=== PATIENT | female | born 1975 | race Caucasian/White ===

== ENCOUNTER 2020-06-22 16:30 | Emergency (ER) | payer OTHER, SELFPAY ==
--- NOTE | ~2020-06-22 | XR_ITS ---
EXAMINATION: LUMBOSACRAL SPINE AND SACRUM/COCCYX CLINICAL INFORMATION: Low back pain COMPARISON: None TECHNIQUE: 2 views lumbosacral spine 3 views sacrum and coccyx FINDINGS: Some minimal spondylitic endplate changes are present in the lumbosacral spine. There is mild disc space narrowing at L3-L4 L4-L5 and L5-S1. No bony destructive lesions or fractures are seen. The sacrum and coccyx appear unremarkable. No evidence of a fracture. XR/XR lumbar spine 2-3V IMPRESSION: Mild degenerative changes in the lumbosacral spine. No acute injury..
--- NOTE | ~2020-06-22 | XR_ITS ---
EXAMINATION: LUMBOSACRAL SPINE AND SACRUM/COCCYX CLINICAL INFORMATION: Low back pain COMPARISON: None TECHNIQUE: 2 views lumbosacral spine 3 views sacrum and coccyx FINDINGS: Some minimal spondylitic endplate changes are present in the lumbosacral spine. There is mild disc space narrowing at L3-L4 L4-L5 and L5-S1. No bony destructive lesions or fractures are seen. The sacrum and coccyx appear unremarkable. No evidence of a fracture. XR/XR sacrum coccyx min 2V IMPRESSION: Mild degenerative changes in the lumbosacral spine. No acute injury..
[2020-06-22 17:34] VITALS: BP 128/85; PULSE 80; RESP 16; O2SAT 96
[2020-06-22 19:12] VITALS: BP 118/71; PULSE 80; RESP 16; TEMP 36.8; O2SAT 100; BMI 42.0
--- NOTE | 2020-06-22 19:15 | ED_ITS ---
HPI - Back Pain/Injury General Chief Complaint: Back Pain/Injury Stated Complaint: lower back pain Source: patient Mode of arrival: wheelchair Limitations: no limitations History of Present Illness HPI Narrative: 44-year-old female with past medical history of laminectomy presents with lower back pain, started off in the middle of her back and radiates to her pelvis and right hip. She has had a history of lower back pain with similar presentation, however has not had this kind of pain in several years since her laminectomy. She does not describe any traumatic injury, denies cauda equina, fevers, chills, chest pain or pressure, palpitations, abdominal pain, abdominal distention, dysuria, hematuria, and edema. MD elicited complaint: back pain Pertinent past history: prior back pain and back surgery Onset (ago): day(s) Timing: constant Severity: severe Pain scale (0-10): 10 Similar Symptoms Previously: Yes Quality: sharp, aching, tingling and spasming Location: lumbar spine, sacrum and right lower back Radiation: groin and right upper leg Exacerbating factors: movement, sitting upright and walking Relieving factors: none Associated symptoms: difficulty walking Treatments prior to arrival: NSAIDS and other medications Work related injury: No Related Data Previous Rx's Medication Instructions Recorded cyclobenzaprine 10 mg PO TID PRN #14 tab 06/22/20 diazepam [Valium] 2 mg PO BEDTIME PRN #7 tab 06/22/20 Allergies Allergy/AdvReac Type Severity Reaction Status Date / Time No Known Allergies Allergy Verified 06/22/20 19:16 Review of Systems Review of Systems: Constitutional: No Weight loss, No Fever, No Chills, ENT/Mouth: No Hearing loss, No Ear Pain, No Nasal Congestion, No Sinus Pain, No Hoarseness, No sore throat, No Rhinorrhea, No Swallowing Difficulty Cardiovascular: No Chest Pain, No SOB Respiratory: No Cough, No Dyspnea Gastrointestinal: No Nausea, No Vomiting, No Diarrhea, No abdominal Pain, No Hematochezia, No Melena Genitourinary: No Dysuria, No Urinary Frequency, No Hematuria, No Urinary Incontinence, Musculoskeletal: positive lower back pain with radiation to the right pelvis and right upper leg Skin: No Skin Lesions, No rash Neuro: No Weakness, No Numbness, No Paresthesias, no loss of bowel or bladder incontinence, no saddle anesthesia Yes all other systems are reviewed and are negative [facility] Past Medical History Attestation statement: The following information was validated with the patient. Source: old records reviewed Surgical History Previous back surgery Social History Social History Advance Directives: No Advance Directives Information Provided: Yes Physical Exam Vital Signs: Vital Signs: Last Vital Signs Temp 98.3 F 06/22/20 19:12 Pulse 80 06/22/20 19:12 Resp 16 06/22/20 19:12 BP 118/71 06/22/20 19:12 Pulse Ox 100 06/22/20 19:12 Body Mass Index 42.0 Appearance: Alert. Oriented X3. No acute distress. Eyes: Pupils equal, round and reactive to light. ENT: Pharynx normal. Neck: Normal inspection. Neck supple. CVS: Normal heart rate and rhythm. Pulses normal. Respiratory: No respiratory distress. Lung sounds clear to auscultation all lobes Abdomen: Soft and nontender. Skin: Skin warm and dry. Normal skin color. Normal skin turgor. Extremities: Moves all extremities against resistance, positive pedal pulses and brisk capillary refill equal bilaterally Neuro: No motor deficit. No sensory deficit. Cranial nerves 2-12 intact no focal neural deficits Course Course Course Narrative: 44-year-old female with past medical history of laminectomy presents with lower back pain. Has had episodes of lower back pain similar to this but not since her surgery. Did not describe any kind of injury. Will give her cyclobenzaprine, lidocaine patches and Valium. Has used ibuprofen, Tylenol, [id number] topicals, and marijuana help relieve her pain with poor effect. Plan of care is for x-ray. X-ray shows degenerative disc disease. Patient was referred to pain management, also discussed that she may need physical therapy for long-term care. Patient upset with these findings, I offered her muscle relaxers and benzo diazepam to help her sleep the muscle spasms. Patient will follow-up with her primary as well as pain management. Patient verbalized understanding of and has agreed to plan of care to discharge home. MDM - Back Pain/Injury Differential Diagnosis Differential diagnosis: Likely lumbar radiculopathy, sciatica and strain of lumbar region Medical Records Attestation: I reviewed the patient's medical records. Lab Data Attestation: I reviewed the patient's lab results. Imaging Data Lumbar and sacral x-ray: Attestation: I personally reviewed and interpreted this imaging study as follows: Radiologist's impression: EXAMINATION: LUMBOSACRAL SPINE AND SACRUM/COCCYX CLINICAL INFORMATION: Low back pain COMPARISON: None TECHNIQUE: 2 views lumbosacral spine 3 views sacrum and coccyx FINDINGS: Some minimal spondylitic endplate changes are present in the lumbosacral spine. There is mild disc space narrowing at L3-L4 L4-L5 and L5-S1. No bony destructive lesions or fractures are seen. The sacrum and coccyx appear unremarkable. No evidence of a fracture. XR/XR sacrum coccyx min 2V IMPRESSION: Mild degenerative changes in the lumbosacral spine. No acute injury.. Discharge Plan Discharge Clinical Impression: Lumbar radiculopathy, Sciatica, Degenerative disc disease Patient Disposition: Home, Self-Care Instructions: Sciatica (ED), Acute Low Back Pain (ED), Lumbar Radiculopathy (ED), Degenerative Disc Disease (ED) Additional Instructions: Your evaluated for lower back pain. Your x-rays are negative for acute findings on emergent intervention but is positive for degenerative disc disease.. We prescribed cyclobenzaprine and Valium. Please use caution while taking these medications, these medications will delay reaction time, increase risk for falls, and cause drowsiness. do not drive or operate machinery while taking this medication. Please call Dr. White for pain management evaluation. Thank you for choosing this emergency department for evaluation. Please follow-up with primary care physician as needed. Return to the emergency department for any new, concerning, or worsening symptoms. Prescriptions: New diazepam [Valium] 2 mg tablet 2 mg PO BEDTIME PRN (Reason: muscle spasm) Qty: 7 RF: 0 cyclobenzaprine 10 mg tablet 10 mg PO TID PRN (Reason: muscle spasm) Qty: 14 RF: 0 Referrals: Kvng White MD [Physician] - 2 days (Lumbar back pain with sciatic, status post laminectomy) Interventions: ED Discharge Assessment Last Done: 06/22/20 20:28 Discharge Date/Time: 06/22/20 20:30
[2020-06-22] MEDS: Cyclobenzaprine HCl 10 MG TABLET PO (20:19)
[2020-06-22] MEDS: diazePAM 2 MG TABLET PO (20:19)
[2020-06-22] MEDS: Lidocaine 4 % Patch ADH..PATCH 2 PATCH TRANSDERMA (20:20)
== END 2020-06-22 20:30 | disposition home or self-care (01) ==
PROVIDERS: Emergency Provider Emergency Medicine Emergency Medical Services
DX: M54.16 Radiculopathy, lumbar region (principal); M54.42 Lumbago with sciatica, left side; M54.41 Lumbago with sciatica, right side; Z79.899 Other long term (current) drug therapy
CPT/HCPCS: 72100; 72220; 99283

== ENCOUNTER 2021-03-21 23:51 | Emergency (ER) | payer OTHER, SELFPAY ==
--- NOTE | ~2021-03-21 | XR_ITS ---
EXAMINATION: XR KNEE, RIGHT CLINICAL INFORMATION: Question fracture COMPARISON: None TECHNIQUE: Four views of the right knee. FINDINGS: Osseous alignment is anatomic. There is mild narrowing of the medial joint space. Osteophytes are present at the medial and lateral compartments. No acute fracture is seen. Small effusion is suspected. XR/XR knee RT 4V IMPRESSION: No fracture identified. Small effusion. Degenerative changes as noted above.
[2021-03-21 23:56] VITALS: BP 139/75; PULSE 78; RESP 20; TEMP 36.3; O2SAT 100; BMI 33.2
--- NOTE | 2021-03-22 06:25 | ED_ITS ---
HPI - Extremity Injury (Lower) General Chief Complaint: Extremity Injury, Lower Stated Complaint: right leg injury Time Seen by Provider: 03/22/21 06:25 Source: patient Mode of arrival: ambulatory History of Present Illness HPI Narrative: This is a 45-year-old female who presents with complaints of right knee pain after she was doing ?kicks? 3 days ago and states that she felt a pop and then had subsequent pain. She has been able to continue ambulating with the knee immobilizer in place but is concerned because she continues to have pain. She otherwise denies any fever, chills. Related Data Previous Rx's Medication Instructions Recorded cyclobenzaprine 10 mg tablet 10 mg PO TID PRN #14 tab 06/22/20 diazepam 2 mg tablet (Valium) 2 mg PO BEDTIME PRN #7 tab 06/22/20 Allergies Allergy/AdvReac Type Severity Reaction Status Date / Time No Known Allergies Allergy Verified 06/22/20 19:16 Review of Systems Review of Systems: Pertinent positives and negatives as stated in HPI 10 point review of systems otherwise negative. [facility] Past Medical History Source: nursing notes reviewed Surgical History Previous back surgery Social History Social History Advance Directives: No Advance Directives Information Provided: Yes Physical Exam Vital Signs: Vital Signs: Last Vital Signs Temp 97.3 F 03/21/21 23:56 Pulse 78 03/21/21 23:56 Resp 20 03/21/21 23:56 BP 139/75 03/21/21 23:56 Pulse Ox 100 03/21/21 23:56 BMI result Body Mass Index 33.2 VITAL SIGNS: Reviewed. GENERAL: Well developed, well nourished, in no acute distress. HEAD: Normocephalic/atraumatic EYES: PERRLA, EOMI LUNGS: Normal breath sounds. SpO2<100> CARDIOVASCULAR: Regular rate and rhythm without noted murmurs ABDOMEN: Soft, non-tender, non-distended with bowel sounds RIGHT LOWER EXTREMITY: THERE IS NO ERYTHEMA, INDURATION, SIGNIFICANT EFFUSION AT THE KNEE AND SENSATION IS INTACT WITH PALPABLE DP/PT AND PATIENT IS ABLE TO RANGE OF MOTION WITHOUT DIFFICULTY. THERE IS NO CALF SWELLING OR TENDERNESS NOTED NEUROLOGIC: Alert and oriented x 4. Course Course Course Narrative: 45-year-old female with history and clinical presentation consistent with mild injury associated with exercise regimen and has been able to bear weight with knee immobilizer in place. On review of imaging patient is noted to be without acute fracture or dislocation and patient received combination analgesics and on re-evaluation endorses improvement in her pain levels. Patient was encouraged to follow-up with primary care provider as well as being provided with a referral see orthopedics. Discharge Plan Discharge Clinical Impression: Knee pain Patient Disposition: Home, Self-Care Instructions: Knee Pain (ED), Knee Immobilizer (ED) Additional Instructions: 1. Recommend continuing to wear knee immobilizer wall walking and working. 2. Tylenol 1000 mg, orally, every 6 hours as needed for pain control. Do not exceed 4000 mg within 24 hours. 3. Ibuprofen 400 mg, orally with milk or food, every 6 hours as needed for pain control. You may take this with Tylenol for increased symptom relief. 4. Recommend applying ice for 10-15 minutes, 3 to 4 times a day and elevating the extremity when possible. 5. Follow-up with your primary care provider for further discussion regarding possible physical therapy. Return to the ER for acute worsening of symptoms. Prescriptions: No Action diazepam [Valium] 2 mg tablet 2 mg PO BEDTIME PRN (Reason: muscle spasm) Qty: 7 RF: 0 cyclobenzaprine 10 mg tablet 10 mg PO TID PRN (Reason: muscle spasm) Qty: 14 RF: 0 Stand Alone Forms: Work/School Release
[2021-03-22] MEDS: Ketorolac Tromethamine 30 MG/ML VIAL 15 MG IM (06:38)
[2021-03-22] MEDS: Acetaminophen 325 MG TABLET 975 MG PO (06:38)
== END 2021-03-22 06:53 | disposition home or self-care (01) ==
PROVIDERS: Emergency Provider Student in an Organized Health Care Education/Training Program
DX: M25.561 Pain in right knee (principal)
CPT/HCPCS: 73564; 96372; 99283; 99284; J1885

== ENCOUNTER 2021-05-20 17:32 | Emergency (ER) | payer OTHER, SELFPAY ==
--- NOTE | ~2021-05-20 | XR_ITS ---
EXAMINATION: XR SHOULDER, LEFT CLINICAL INFORMATION: Pain in left shoulder COMPARISON: None TECHNIQUE: Three views of the left shoulder. FINDINGS: The bones and soft tissues are normal. No fracture. Glenohumeral and acromioclavicular alignment is anatomic with normal joint space. No abnormal soft tissue calcifications. XR/XR shoulder LT min 2V IMPRESSION: Normal left shoulder.
[2021-05-20 17:37] VITALS: BP 176/101; PULSE 107; RESP 18; TEMP 36.9; O2SAT 98; BMI 28.3
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
--- NOTE | 2021-05-20 19:23 | PC.NURSE ---
[employer] IN TALKING WITH PATIENT.
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
[2021-05-20 20:52] VITALS: BP 136/73; PULSE 64; RESP 16; TEMP 36.4; O2SAT 97
== END 2021-05-20 21:06 | disposition home or self-care (01) ==
PROVIDERS: Emergency Provider Internal Medicine
DX: S46.912A Strain of unspecified muscle, fascia and tendon at shoulder and upper arm level, left arm, initial encounter (principal); M79.602 Pain in left arm; Y04.8XXA Assault by other bodily force, initial encounter; Y93.9 Activity, unspecified; Y92.9 Unspecified place or not applicable; Y99.9 Unspecified external cause status; Z79.899 Other long term (current) drug therapy
CPT/HCPCS: 73030; 99283; 99291

== ENCOUNTER 2021-08-18 09:50 | Emergency (ER) | payer OTHER, SELFPAY ==
--- NOTE | ~2021-08-18 | CT_ITS ---
EXAMINATION: CT ABDOMEN AND PELVIS WITHOUT CONTRAST CLINICAL INFORMATION: Abnormal vaginal bleeding, hematuria and right flank pain COMPARISON: None TECHNIQUE: Multidetector volumetric imaging was performed from the superior aspect of the liver through the pubic symphysis. Sagittal and coronal reformatted images were obtained on the technologist's workstation. This CT examination was performed using dose optimization techniques as appropriate, variously including the following: *Automated exposure control *Adjustment of mA and/or kV according to patient size (this includes techniques or standardized protocols for targeted exams where dose is matched to indication/reason for exam; i.e. extremities or head) *Use of iterative reconstruction technique DLP: 416 mGy-cm FINDINGS: LUNG BASES: The visualized lung bases are unremarkable. LIVER, GALLBLADDER, AND BILIARY TREE: The liver is enlarged measuring approximately 20 cm in cephalocaudad dimension but is normal in shape and attenuation. No focal hepatic lesion or biliary ductal dilatation is present. The gallbladder contains 2 large calcified stones measuring about 1.5 cm each. There is some mild thickening in the gallbladder at its base. No gross inflammatory changes or pericholecystic fluid collections are seen. PANCREAS: Unremarkable. SPLEEN: Unremarkable. ADRENAL GLANDS: Unremarkable. KIDNEYS AND URETERS: The kidneys are normal in size, shape, and attenuation. No hydronephrosis, hydroureter, or calculi seen. No perinephric stranding. BLADDER: Unremarkable. GASTROINTESTINAL TRACT: The small and large bowel are unremarkable. The appendix is unremarkable. ABDOMINAL WALL: No significant hernia is appreciated. LYMPH NODES: Normal. VASCULAR: Unremarkable. PELVIC VISCERA: Uterus appears enlarged. An abnormal adnexal mass or free fluid is not seen. OSSEOUS STRUCTURES: Mild degenerative changes present in the spine most marked at L5-S1. CT/CT abdomen pelvis wo con IMPRESSION: 1. Hepatomegaly. 2. Cholelithiasis. 3. Mildly enlarged uterus. 4. A cause for the hematuria and flank pain has not been found. Fleischner guidelines were followed.
--- NOTE | ~2021-08-18 | US_ITS ---
EXAMINATION: US PELVIS CLINICAL INFORMATION: Abnormal vaginal bleeding COMPARISON: None TECHNIQUE: Ultrasound of the pelvis is performed using both transabdominal and transvaginal transducers along with Doppler. Transvaginal imaging is performed due to inadequate visualization transabdominally. FINDINGS: Uterus: The uterus is anteverted and measures 12.8 x 5.6 x 7.5 cm. The uterus is smooth in contour and has heterogeneous myometrial echogenicity. The double wall endometrial thickness is 9 mm. A tiny focal fluid collection is seen in the endometrial canal measuring 3 mm. At least 2 small uterine fibroids are seen measuring under a centimeter in size. Adnexa: Both ovaries are visualized. There is normal color flow to the adnexa. There is no ovarian torsion. There is no pelvic ascites or fluid collection. Right ovary measures 2.3 x 1.6 x 1.7 cm for a volume of 33 mL Left ovary measures 2.7 x 2.5 x 1.4 cm for a volume of 5 mL and contains a 1.5 x 1.1 x 1.2 cm probable corpus luteal cyst. No free fluid is present in the cul-de-sac US/US pelvic and transvaginal IMPRESSION: Bulky heterogeneous uterus with 2 small fibroids seen. Tiny fluid collection in the endometrial canal. An abnormal adnexal mass is not seen.
[2021-08-18 09:56] VITALS: BP 123/68; PULSE 89; RESP 18; TEMP 36.3; O2SAT 100; BMI 25.9
[2021-08-18 10:17] LABS: Appearance Urine HAZY; Glucose Urine UA NEG (NEG); Leukocyte Esterase Urine NEG (NEG); Nitrite Urine NEG (NEG); PH 6.5 (5.0-8.0); Specific Gravity - Urine <= 1.005 (1.005-1.025); UACC Culture Trigger NO; Urine Blood 3+ (NEG); Urine Ketones NEG (NEG); Urine Protein NEG (NEG-TRACE)
[2021-08-18 10:18] LABS: Color Urine PINK
[2021-08-18 10:21] LABS: UPreg QC Valid YES; Urine Pregnancy NEGATIVE (NEGATIVE)
[2021-08-18 10:23] LABS: RBC Urine TNTC /HPF (0); Squamous Epithelial Cell Urine TRACE /LPF; WBC Urine 0 /HPF (0-4)
--- NOTE | 2021-08-18 10:37 | ECG_ITS ---
Test Reason : vaginal bleed Blood Pressure : / mmHG Vent. Rate : 056 BPM Atrial Rate : 056 BPM P-R Int : 128 ms QRS Dur : 096 ms QT Int : 392 ms P-R-T Axes : 052 034 033 degrees QTc Int : 378 ms Sinus bradycardia Otherwise normal ECG No previous ECGs available Referred By: Felicitas Jones Electronically Signed By:Arnaldo Shoemaker
[2021-08-18 11:00] LABS: MANUAL DIFF FLAG NO
[2021-08-18 11:01] LABS: Basophils Percent Auto 0.3 % (0-2); Eosinophils Absolute Auto 0.1 X10*3/uL (0.0-0.4); Eosinophils Percent Auto 0.9 % (0-4); Hematocrit 42.6 % (37.0-47.0); Hemoglobin 13.9 g/dl (12.0-16.0); Imm Gran Abs Auto 0.01 X10*3/uL (0.00-0.03); Imm Gran Pct Auto 0.1 % (0.0-0.4); Lymphocytes Absolute Auto 1.5 X10*3/uL (1.2-4.9); Lymphocytes Percent Auto 20.2 % (20-40); Mean Corpuscular HGB Conc 32.6 g/dl (31.0-35.0); Mean Platelet Volume 9.3 fL (9.4-12.3); Monocytes Absolute Auto 0.5 X10*3/uL (0.1-1.2); Monocytes Percent Auto 6.6 % (2-11); Neutrophils Absolute Auto 5.4 x10*3/uL (2.0-8.3); Neutrophils Percent Auto 71.9 % (45-73); Platelet Count 238 X10*3/uL (160-400); Red Blood Count 4.63 X10*6/uL (4.20-5.50); White Blood Count 7.5 X10*3/uL (4.8-10.8)
[2021-08-18 11:13] LABS: Prothrombin Time 11.3 SEC (9.9-13.0)
[2021-08-18 11:15] LABS: Alanine Aminotransferase 22 U/L (0-31); Albumin Level 4.2 g/dL (3.5-5.0); Alkaline Phosphatase 40 U/L (39-117); Anion Gap 12 (12-20); Aspartate Amino Transferase 17 U/L (5-31); Bilirubin Total 0.4 mg/dL (0.0-1.0); Blood Urea Nitrogen 16 mg/dL (9-16); Carbon Dioxide 26 mmol/L (22-29); Chloride 108 mmol/L (96-108); Creatinine Clr Calc Pharmacy 77.9; Estimated Glomerular Filt Rate > 60; Glucose Random 99 mg/dL (60-115); Magnesium 2.2 mg/dL (1.6-2.6); Potassium 4.9 mmol/L (3.3-5.1); Sodium 141 mmol/L (135-145); Total Protein 6.6 g/dL (6.5-8.0)
[2021-08-18 11:17] VITALS: PULSE 65; RESP 16; O2SAT 100
[2021-08-18] MEDS: 0.9 % Sodium Chloride 1,000 ML 999 ML IVCONT (11:22)
[2021-08-18 11:28] VITALS: BP 123/63; PULSE 56; RESP 16; O2SAT 100
[2021-08-18 11:55] VITALS: BP 135/86; BP 150/89; PULSE 61; PULSE 64
[2021-08-18 11:56] VITALS: BP 158/90; PULSE 65
--- NOTE | 2021-08-18 12:08 | ED_ITS ---
HPI - Female Genitourinary General Chief complaint: Vaginal Bleeding Stated complaint: heavy vaginal bleeding 2 weeks Time Seen by Provider: 08/18/21 10:36 Source: patient Mode of arrival: ambulatory Limitations: no limitations History of Present Illness HPI Narrative: 45-year-old female with a past medical history of laminectomy presenting to the ED with complaints of irregular vaginal bleeding for approximately 4 days now with clots with associated lightheadedness. She reports that she had her regular menstrual period approximately 1 and half weeks ago which lasted 7 days and was heavy then became light and it went away for 3 days then she started bleeding heavily again and she is unsure why. She reports that she does have some suprapubic/right lower quadrant/right flank/right mid back pain and lighth eadedness/dizziness. She reports that she has never had any irregular bleeding in the past. She does not have any thoughts of STDs although does admit that she has been having some problems with her . She reports that her family does have a history of cervical cancer. She denies any fevers, chills, headaches, neck pain/stiffness, trouble swallowing or breathing, chest pain or shortness of breath, dyspnea on exertion, orthopnea, palpitations, paresthesias, nausea/vomiting/diarrhea, black or bloody stools, black or bloody emesis, focal weakness or general weakness, dysuria, abnormal vaginal discharge, rashes, recent trauma to the vaginal area or any other symptoms complaints or concerns at this time. MD elicited complaint: vaginal bleeding Onset (ago): day(s) (4) Severity: severe Female Urogenital Radiation: Suprapubic, LRQ and R Flank Quality of pain: cramping and aching Consistency: constant Vaginal discharge: none Vaginal bleeding: moderate, heavy, bright red, clots and # pads per hour (1) Urinary symptoms: Hematuria Exacerbating factors: none Relieving factors: none Associated symptoms: abdominal pain and other (Lightheadedness) Treatment prior to arrival: none Sexual activity: Yes Patient : No Related Data Previous Rx's Medication Instructions Recorded cyclobenzaprine 10 mg tablet 10 mg PO TID PRN #14 tab 06/22/20 diazepam 2 mg tablet (Valium) 2 mg PO BEDTIME PRN #7 tab 06/22/20 cyclobenzaprine 10 mg tablet 10 mg PO BEDTIME PRN #7 tab 05/20/21 lidocaine 5 % topical patch 1 patch TOPICAL DAILY PRN #15 ea 05/20/21 medroxyprogesterone 10 mg tablet 10 mg PO DAILY 30 Days #30 tab 08/18/21 (Provera) Allergies Allergy/AdvReac Type Severity Reaction Status Date / Time No Known Allergies Allergy Verified 08/18/21 09:55 Review of Systems 2 Review of Systems: Constitutional : No Fever, No Chills ENT/Mouth : No sore throat, No Rhinorrhea Eyes: No Eye Pain, No Redness Cardiovascular : No Chest Pain, No SOB Respiratory : No Cough, No Sputum, No Wheezing Gastrointestinal : + abdominal pain, No Nausea, No Vomiting, No Diarrhea Genitourinary : + irregular bleeding, + hematuria, No Dysuria, No Urinary Frequency, No pelvic pain, No vaginal discharge Musculoskeletal : No Myalgias Skin : No rash Neuro : No Weakness, No Headache Psych : No Anxiety/Panic, No Depression Heme/Lymph: No bruising, No Lymphadenopathy Endocrine : No Polyuria, No Polydipsia Yes all other systems are reviewed and are negative [facility] Past Medical History Attestation statement: The following information was validated with the patient. Surgical History Previous back surgery Social History Social History Patient Tobacco Use Status: Current everyday Tobacco user Use of substances other than those prescribed or required for medical reasons: Yes Substance Use Type: Marijuana Advance Directives: No Advance Directives Information Provided: No Patient : No Physical Exam Vital Signs: Vital Signs: Last Vital Signs Temp 97.3 F 08/18/21 09:56 Pulse 65 08/18/21 11:56 Resp 16 08/18/21 11:28 BP 158/90 H 08/18/21 11:56 Pulse Ox 100 08/18/21 11:28 BMI result Body Mass Index 25.9 vital signs have been reviewed as normal and appeared to be correct. Blood pressure normal. Heart rate normal. Respiration rate normal. Temperature normal. Oxygen saturation normal. Appearance: Alert. Oriented X3. No acute distress. Head: Normal external exam. Normocephalic. Atraumatic. Eyes: PERRLA. EOMI. Conjunctiva and sclera normal. Eyelids normal. ENT: EAC normal. TM's Normal. Pharynx normal. Uvula midline. Moist mucous membranes. No trismus noted. No drooling noted. No muffled voice noted. Neck: Normal inspection. Neck supple. FROM. No adenopathy. Thyroid Normal. No meningeal signs. No neck mass noted. CVS: Normal heart rate and rhythm. Heart sound normal. No murmurs noted. Pulses normal throughout. Respiratory: No respiratory distress. Painless inspiration. Breath sounds normal. No wheezes/rales/rhonchi noted. Chest nontender. No accessory muscle usage noted or decreased air movement noted. Abdomen: Soft and nontender. Bowel sounds normal in all 4 quadrants. No distention noted. No organomegaly noted. No visible injury noted. : Supervised by ALCIDES Rosas. Normal external appearance of urethra. No lesions/lacerations or discharge or tenderness noted. Speculum exam normal appearance/palpation of vagina normal. No abnormal vaginal discharge noted. Otherwise no vaginal erythema. No foreign bodies noted. No vaginal laceration/lesions. Although patient did have 10-15 mL of bright red blood in the vaginal canal although when I provided suction there was no additional bleeding or active bleeding from the cervical os. No tissue present in vagina. No vaginal mass noted. No vaginal swelling noted. No vaginal tenderness noted. Normal appearance of cervix. Normal palpation of cervix. Cervical os is closed. No abnormal cervical discharge noted. No cervical lesion/mass. No Bartholin cyst noted. No cervical motion tenderness noted. Negative chandelier sign. Normal bimanual exam. Uterine size normal. Bladder normal to palpation. Uterine consistency normal. Normal cervical palpation. Uterine mobility normal. Uterine shape normal. Normal adnexa. Normal rectovaginal exam. Back: No CVA tenderness. Full range of motion noted. Skin: Skin warm and dry. Normal skin color. Normal skin turgor. No rashes/lesions/lacerations noted. Extremities: No lower extremity edema. Extremities exhibit normal range of mo tion. Extremities nontender. Neuro: Oriented X 3. No motor deficit. No sensory deficit. Reflexes normal. Course Course Course Narrative: 10:40am - 45-year-old female with a past medical history of laminectomy presenting to the ED with complaints of irregular vaginal bleeding for approximately 4 days now with clots with associated lightheadedness. She reports that she had her regular menstrual period approximately 1 and half weeks ago which lasted 7 days and was heavy then became light and it went away for 3 days then she started bleeding heavily again and she is unsure why. She reports that she does have some suprapubic/right lower quadrant/right flank/right mid back pain and lighthe adedness/dizziness. She reports that she has never had any irregular bleeding in the past. She does not have any thoughts of STDs although does admit that she has been having some problems with her . She reports that her family does have a history of cervical cancer. Plan: Labs, blood type and screen, orthostatic vitals, CT scan abdomen pelvis without IV contrast, gonorrhea chlamydia swab, ultrasound transvaginal Reevaluation(s) Reevaluation #1: - labs reviewed and all within normal limits at this time including the patient's H&H. UA revealed high amounts of blood otherwise no evidence of UTI and patient negative for . Gonorrhea chlamydia pending at this time - CT scan abdomen pelvis without IV contrast pending at this time - transvaginal ultrasound pending at this time. Time: 12:22 Reevaluation #2: - CT scan of abdomen pelvis without IV contrast revealed hepatomegaly; cholelithiasis; mildly enlarged uterus otherwise no other acute processes were noted to explain the patient's hematuria and flank pain. - pelvic/transvaginal ultrasound revealed bulky heterogeneous uterus with 2 small fibroids seen and tiny fluid collection in the endometrial canal and abnormal adnexal mass is not seen. - therefore I discussed this case with Dr. Bustamante and due to the patient's H&H being within normal limits and all her labs/vitals and imaging within normal limits patient will be discharged with Provera 10 mg PO qd #30 till she is seen in the office with Dr. Bustamante and he reported that she will need emb to rule out endometrial pathology. Patient understands and is agreeable with this plan. Time: 13:38 MDM - Female Genitourinary Medical Records Attestation: I reviewed the patient's medical records. Lab Data Attestation: I reviewed the patient's lab results. Result diagrams: 08/18/21 10:52 08/18/21 10:52 Labs: Lab Results 08/18/21 08/18/21 08/18/21 Range/Units 10:09 10:09 10:52 WBC 7.5 (4.8-10.8) X10*3/uL RBC 4.63 (4.20-5.50) X10*6/uL Hgb 13.9 (12.0-16.0) g/dl Hct 42.6 (37.0-47.0) % MCV 92.0 (80.0-98.0) fL MCH 30.0 (27.0-33.0) pg MCHC 32.6 (31.0-35.0) g/dl RDW 14.0 (11.0-16.0) % Plt Count 238 (160-400) X10*3/uL MPV 9.3 L (9.4-12.3) fL Immature Gran % (Auto) 0.1 (0.0-0.4) % Neut % (Auto) 71.9 (45-73) % Lymph % (Auto) 20.2 (20-40) % [place] % (Auto) 6.6 (2-11) % Eos % (Auto) 0.9 (0-4) % Baso % (Auto) 0.3 (0-2) % Lymph # (Auto) 1.5 (1.2-4.9) X10*3/uL [place] # (Auto) 0.5 (0.1-1.2) X10*3/uL Eos # (Auto) 0.1 (0.0-0.4) X10*3/uL Baso # (Auto) 0.0 (0.0-0.2) X10*3/uL Abs Immat Gran (auto) 0.01 (0.00-0.03) X10*3/uL Absolute Neuts (auto) 5.4 (2.0-8.3) x10*3/uL Absolute Nucleated RBC 0.000 (0.0-0.012) X10*3/uL Nucleated RBC % (auto) 0.0 (0.0-0.2) /100WBC PT (9.9-13.0) SEC INR (0.9-1.1) Sodium (135-145) mmol/L Potassium (3.3-5.1) mmol/L Chloride (96-108) mmol/L Carbon Dioxide (22-29) mmol/L Anion Gap (12-20) BUN (9-16) mg/dL Creatinine (0.5-1.4) mg/dL Estim Creat Clear Calc Estimated GFR Random Glucose (60-115) mg/dL Calcium (8.4-10.2) mg/dL Magnesium (1.6-2.6) mg/dL Total Bilirubin (0.0-1.0) mg/dL AST (5-31) U/L ALT (0-31) U/L Alkaline Phosphatase (39-117) U/L Total Protein (6.5-8.0) g/dL Albumin (3.5-5.0) g/dL Urine Color PINK Urine Appearance HAZY Urine pH 6.5 (5.0-8.0) Ur Specific [place] <= 1.005 (1.005-1.025) Urine Protein NEG (NEG-TRACE) MG/DL Urine Glucose (UA) NEG (NEG) MG/DL Urine Ketones NEG (NEG) MG/DL Urine Blood 3+ H (NEG) Urine Nitrite NEG (NEG) Ur Leukocyte Esterase NEG (NEG) Urine RBC TNTC H (0) /HPF Urine WBC 0 (0-4) /HPF Ur Squamous Epith Cells TRACE /LPF Urine Bacteria NONE /LPF Urine Test NEGATIVE (NEGATIVE) Blood Type Antibody Screen 08/18/21 08/18/21 08/18/21 Range/Units 10:52 10:52 10:52 WBC (4.8-10.8) X10*3/uL RBC (4.20-5.50) X10*6/uL Hgb (12.0-16.0) g/dl Hct (37.0-47.0) % MCV (80.0-98.0) fL MCH (27.0-33.0) pg MCHC (31.0-35.0) g/dl RDW (11.0-16.0) % Plt Count (160-400) X10*3/uL MPV (9.4-12.3) fL Immature Gran % (Auto) (0.0-0.4) % Neut % (Auto) (45-73) % Lymph % (Auto) (20-40) % [place] % (Auto) (2-11) % Eos % (Auto) (0-4) % Baso % (Auto) (0-2) % Lymph # (Auto) (1.2-4.9) X10*3/uL [place] # (Auto) (0.1-1.2) X10*3/uL Eos # (Auto) (0.0-0.4) X10*3/uL Baso # (Auto) (0.0-0.2) X10*3/uL Abs Immat Gran (auto) (0.00-0.03) X10*3/uL Absolute Neuts (auto) (2.0-8.3) x10*3/uL Absolute Nucleated RBC (0.0-0.012) X10*3/uL Nucleated RBC % (auto) (0.0-0.2) /100WBC PT 11.3 (9.9-13.0) SEC INR 1.0 (0.9-1.1) Sodium 141 (135-145) mmol/L Potassium 4.9 (3.3-5.1) mmol/L Chloride 108 (96-108) mmol/L Carbon Dioxide 26 (22-29) mmol/L Anion Gap 12 (12-20) BUN 16 (9-16) mg/dL Creatinine 0.74 (0.5-1.4) mg/dL Estim Creat Clear Calc 77.9 Estimated GFR > 60 Random Glucose 99 (60-115) mg/dL Calcium 9.0 (8.4-10.2) mg/dL Magnesium 2.2 (1.6-2.6) mg/dL Total Bilirubin 0.4 (0.0-1.0) mg/dL AST 17 (5-31) U/L ALT 22 (0-31) U/L Alkaline Phosphatase 40 (39-117) U/L Total Protein 6.6 (6.5-8.0) g/dL Albumin 4.2 (3.5-5.0) g/dL Urine Color Urine Appearance Urine pH (5.0-8.0) Ur Specific [place] (1.005-1.025) Urine Protein (NEG-TRACE) MG/DL Urine Glucose (UA) (NEG) MG/DL Urine Ketones (NEG) MG/DL Urine Blood (NEG) Urine Nitrite (NEG) Ur Leukocyte Esterase (NEG) Urine RBC (0) /HPF Urine WBC (0-4) /HPF Ur Squamous Epith Cells /LPF Urine Bacteria /LPF Urine Test (NEGATIVE) Blood Type Antibody Screen 08/18/21 Range/Units 11:16 WBC (4.8-10.8) X10*3/uL RBC (4.20-5.50) X10*6/uL Hgb (12.0-16.0) g/dl Hct (37.0-47.0) % MCV (80.0-98.0) fL MCH (27.0-33.0) pg MCHC (31.0-35.0) g/dl RDW (11.0-16.0) % Plt Count (160-400) X10*3/uL MPV (9.4-12.3) fL Immature Gran % (Auto) (0.0-0.4) % Neut % (Auto) (45-73) % Lymph % (Auto) (20-40) % [place] % (Auto) (2-11) % Eos % (Auto) (0-4) % Baso % (Auto) (0-2) % Lymph # (Auto) (1.2-4.9) X10*3/uL [place] # (Auto) (0.1-1.2) X10*3/uL Eos # (Auto) (0.0-0.4) X10*3/uL Baso # (Auto) (0.0-0.2) X10*3/uL Abs Immat Gran (auto) (0.00-0.03) X10*3/uL Absolute Neuts (auto) (2.0-8.3) x10*3/uL Absolute Nucleated RBC (0.0-0.012) X10*3/uL Nucleated RBC % (auto) (0.0-0.2) /100WBC PT (9.9-13.0) SEC INR (0.9-1.1) Sodium (135-145) mmol/L Potassium (3.3-5.1) mmol/L Chloride (96-108) mmol/L Carbon Dioxide (22-29) mmol/L Anion Gap (12-20) BUN (9-16) mg/dL Creatinine (0.5-1.4) mg/dL Estim Creat Clear Calc Estimated GFR Random Glucose (60-115) mg/dL Calcium (8.4-10.2) mg/dL Magnesium (1.6-2.6) mg/dL Total Bilirubin (0.0-1.0) mg/dL AST (5-31) U/L ALT (0-31) U/L Alkaline Phosphatase (39-117) U/L Total Protein (6.5-8.0) g/dL Albumin (3.5-5.0) g/dL Urine Color Urine Appearance Urine pH (5.0-8.0) Ur Specific [place] (1.005-1.025) Urine Protein (NEG-TRACE) MG/DL Urine Glucose (UA) (NEG) MG/DL Urine Ketones (NEG) MG/DL Urine Blood (NEG) Urine Nitrite (NEG) Ur Leukocyte Esterase (NEG) Urine RBC (0) /HPF Urine WBC (0-4) /HPF Ur Squamous Epith Cells /LPF Urine Bacteria /LPF Urine Test (NEGATIVE) Blood Type O Positive Antibody Screen NEGATIVE Imaging Data CT scan abdomen pelvis without IV contrast: Attestation: I personally reviewed and interpreted this imaging study as follows: Radiologist's impression: FINDINGS: LUNG BASES: The visualized lung bases are unremarkable.? LIVER, GALLBLADDER, AND BILIARY TREE: The liver is enlarged measuring approximately 20 cm in cephalocaudad dimension but is normal in shape and attenuation.? No focal hepatic lesion or biliary ductal dilatation is present. The gallbladder contains 2 large calcified stones measuring about 1.5 cm each. There is some mild thickening in the gallbladder at its base. No gross inflammatory changes or pericholecystic fluid collections are seen.? PANCREAS: Unremarkable.? SPLEEN: Unremarkable.? ADRENAL GLANDS: Unremarkable.? KIDNEYS AND URETERS: The kidneys are normal in size, shape, and attenuation. No hydronephrosis, hydroureter, or calculi seen. No perinephric stranding. ? BLADDER: Unremarkable.? GASTROINTESTINAL TRACT: The small and large bowel are unremarkable. The appendix is unremarkable.? ABDOMINAL WALL: No significant hernia is appreciated.? LYMPH NODES: Normal. VASCULAR: Unremarkable. PELVIC VISCERA: Uterus appears enlarged. An abnormal adnexal mass or free fluid is not seen.? OSSEOUS STRUCTURES: Mild degenerative changes present in the spine most marked at L5-S1.? CT/CT abdomen pelvis wo con IMPRESSION: 1.? Hepatomegaly. 2.? Cholelithiasis. 3.? Mildly enlarged uterus. 4.? A cause for the hematuria and flank pain has not been found.? ? Fleischner guidelines were followed. Pelvic/transvaginal ultrasound: Attestation: I personally reviewed and interpreted this imaging study as follows: Radiologist's impression: FINDINGS: Uterus: The uterus is anteverted and measures 12.8 x 5.6 x 7.5 cm.? The uterus is smooth in contour and has heterogeneous myometrial echogenicity. The double wall endometrial thickness is 9 mm. A tiny focal fluid collection is seen in the endometrial canal measuring 3 mm. At least 2 small uterine fibroids are seen measuring under a centimeter in size. Adnexa: Both ovaries are visualized. There is normal color flow to the adnexa. There is no ovarian torsion.? There is no pelvic ascites or fluid collection. Right ovary measures 2.3 x 1.6 x 1.7 cm for a volume of 33 mL Left ovary measures 2.7 x 2.5 x 1.4 cm for a volume of 5 mL and contains a 1.5 x 1.1 x 1.2 cm probable corpus luteal cyst. No free fluid is present in the cul-de-sac US/US pelvic and transvaginal IMPRESSION: Bulky heterogeneous uterus with 2 small fibroids seen. Tiny fluid collection in the endometrial canal. An abnormal adnexal mass is not seen. ECG Data Attestation: I personally reviewed and interpreted this ECG as follows: ECG interpretation date: 08/18/21 ECG interpretation time: 10:38 Interpretation: Patient with ventricular rate of 56 with sinus bradycardia normal [place] interval normal QRS duration normal QT/QTC interval. No acute ischemic change are noted. No prior EKGs in our system to compare to at this time. Discharge Plan Discharge Clinical Impression: Metrorrhagia, Fibroid, uterine Patient Disposition: Home, Self-Care Instructions: Dysfunctional Uterine Bleeding (ED) Prescriptions: New medroxyprogesterone [Provera] 10 mg tablet 10 mg PO DAILY 30 Days Qty: 30 0RF No Action diazepam [Valium] 2 mg tablet 2 mg PO BEDTIME PRN (Reason: muscle spasm) Qty: 7 0RF cyclobenzaprine 10 mg tablet 10 mg PO TID PRN (Reason: muscle spasm) Qty: 14 0RF cyclobenzaprine 10 mg tablet 10 mg PO BEDTIME PRN (Reason: muscle spasm) Qty: 7 0RF lidocaine 5 % adhesive patch,medicated 1 patch topical DAILY PRN (Reason: pain) Qty: 15 0RF Rx Instructions: leave on most painful area for up to 12 hrs Referrals: Kvng Bustamante MD [Physician] - 1 week (Call tomorrow to make a follow-up appointment within the next 1-2 weeks) Stand Alone Forms: Work/School Release
--- NOTE | 2021-08-18 13:37 | P.CONOB_ITS ---
MARKETING SALES REPRESENTATIVE - CN: HPI Data of Consult Consult date: 08/18/21 Primary Care Provider: Unknown Physician Consult Narrative Narrative: I was consulted on Karin Stokes who is a 45 year old female presenting to the emergency room complaining of irregular vaginal bleeding for approximately 4 days associated with passage of blood clots, pelvic cramping and lightheadedness, and dizziness.? cc:: CC: BRAND REPRESENTATIVE - Review of Systems Review of Systems ROS Unobtainable: All systems reviewed & are unremarkable except as noted in HPI and below Cardiovascular: Denies Palpatations, Loss of consciousness or Chest pain Respiratory: Denies Cough, Wheezing or Shortness of breath Musculoskeletal: Denies Low back pain Gastrointestinal: Denies Heartburn, Constipation, Diarrhea, Nausea or Vomiting Genitourinary: Denies Pain with urination, Burning with urination or Urinary abigail quency Neurological: Denies Migranes Psychological: Denies Depression OB [facility] Surgical History Surgical History Previous back surgery Social History Social History Patient Tobacco Use Status: Current everyday Tobacco user Use of substances other than those prescribed or required for medical reasons: Yes Substance Use Type: Marijuana Advance Directives: No Advance Directives Information Provided: No Patient : No Meds Allergies Allergy/AdvReac Type Severity Reaction Status Date / Time No Known Allergies Allergy Verified 08/18/21 09:55 MARKETING SALES REPRESENTATIVE Physical Exam Vitals Vital signs: Temp Pulse Resp BP Pulse Ox 97.3 F 65 16 158/90 H 100 08/18/21 09:56 08/18/21 11:56 08/18/21 11:28 08/18/21 11:56 08/18/21 11:28 BMI result Body Mass Index 25.9 Constitutional General Appearance: Healthy appearing, Well-nourished and Well-developed Psychiatric Mood and Affect: active and alert, normal mood and normal affect Skin Appearance: No rashes and No lesions Lungs Respiratory Effort: No intercostal retractions Auscultation: Clear to auscultation Cardiovascular Auscultation: RRR Abdomen Auscultation/Inspection/Palpation: Normal bowel sounds, Soft, Non-distended and No tenderness Additional Comments: Pelvic exam reported by QUENTIN Lemus, no active vaginal bleeding, no cervical motion tenderness, no adnexal or uterine tenderness MARKETING SALES REPRESENTATIVE - Results Labs CBC & Chem 7: 08/18/21 10:52 08/18/21 10:52 Labs: Short CBC 08/18/21 Range/Units 10:52 WBC 7.5 (4.8-10.8) X10*3/uL Hgb 13.9 (12.0-16.0) g/dl Hct 42.6 (37.0-47.0) % Plt Count 238 (160-400) X10*3/uL BMP 08/18/21 10:52 Sodium 141 Potassium 4.9 Chloride 108 Carbon Dioxide 26 BUN 16 Creatinine 0.74 Calcium 9.0 Liver Function 08/18/21 Range/Units 10:52 Total Bilirubin 0.4 (0.0-1.0) mg/dL AST 17 (5-31) U/L ALT 22 (0-31) U/L Alkaline Phosphatase 40 (39-117) U/L Albumin 4.2 (3.5-5.0) g/dL Urine 08/18/21 08/18/21 Range/Units 10:09 10:09 Urine Color PINK Urine Appearance HAZY Urine pH 6.5 (5.0-8.0) Ur Specific [place] <= 1.005 (1.005-1.025) Urine Protein NEG (NEG-TRACE) MG/DL Urine Glucose (UA) NEG (NEG) MG/DL Urine Test NEGATIVE (NEGATIVE) Antibody Screen Antibody Screen NEGATIVE 08/18/21 11:16 Imaging US - abdomen: Radiologist's impression: ITS Impressions Abdomen/Pelvis CT 08/18/21 11:30 IMPRESSION: 1. Hepatomegaly. 2. Cholelithiasis. 3. Mildly enlarged uterus. 4. A cause for the hematuria and flank pain has not been found. Fleischner guidelines were followed. Pelvic/Transvag US 08/18/21 12:13 IMPRESSION: Bulky heterogeneous uterus with 2 small fibroids seen. Tiny fluid collection in the endometrial canal. An abnormal adnexal mass is not seen. Assessment and Plan (1) Abnormal uterine bleeding (AUB): Status: Acute Recommended the following to QUENTIN Beltran: Start Provera 10 mg p.o. q.d; instructions to be given to the patient to follow- up in our office in the coming few days for AUB workup including but not limited to: co testing, mammogram, TSH, endometrial biopsy to rule out endometrial pathology including endometrial hyperplasia and malignancy; in addition, the p atient is to come back to the emergency room in case of persistence or worsening of her heavy vaginal bleeding. I would Defer workup for lightheadedness/dizziness to the emergency room team to rule out other causes of dizziness since the patient has a stable vital signs and normal H&H . I spent a total of 25 minutes reviewing the chart, communicating with the ER provider and documenting in the medical record
[2021-08-18 13:44] LABS: CT PCR NOT DETECTED (Not Detect.); NG PCR NOT DETECTED (Not Detect.)
[2021-08-18] MEDS: medroxyPROGESTERone Acetate 5 MG TABLET 10 MG PO (14:15)
== END 2021-08-18 14:17 | disposition home or self-care (01) ==
PROVIDERS: Physician Assistant Medical; Emergency Provider Emergency Medicine
DX: N92.1 Excessive and frequent menstruation with irregular cycle (principal); D25.9 Leiomyoma of uterus, unspecified; F17.200 Nicotine dependence, unspecified, uncomplicated; F12.90 Cannabis use, unspecified, uncomplicated
CPT/HCPCS: 36415; 74176; 76830; 76856; 80053; 81001; 81025; 83735; 85025; 85610; 86850; 86900; 86901; 87491; 87591; 93005; 96360; 99284

== ENCOUNTER 2021-08-29 12:05 | Outpatient (REF) | payer OTHER, SELFPAY ==
[2021-09-03 02:47] LABS: HPV mRNA E6/E7 rflx Not Detected (Not Detected)
== END 2021-08-29 12:06 | disposition home or self-care (01) ==
LOC: HO.LAB 12:05
PROVIDERS: Visit Provider Obstetrics & Gynecology
DX: N93.9 Abnormal uterine and vaginal bleeding, unspecified (principal); Z11.51 Encounter for screening for human papillomavirus (HPV); Z13.29 Encounter for screening for other suspected endocrine disorder; F17.210 Nicotine dependence, cigarettes, uncomplicated
CPT/HCPCS: 81025; 87086; 87624; 88142; 99202

== ENCOUNTER 2021-09-05 12:57 | Outpatient (REF) | payer OTHER, SELFPAY | END 2021-09-05 12:58 | disposition home or self-care (01) | LOC: HO.LAB 12:57 | PROVIDERS: Visit Provider Obstetrics & Gynecology | DX: Z32.02 Encounter for pregnancy test, result negative (principal); N93.9 Abnormal uterine and vaginal bleeding, unspecified | CPT/HCPCS: 58100; 81025; 88305 ==

== ENCOUNTER 2021-09-07 15:41 | Emergency (ER) | payer OTHER, SELFPAY ==
--- NOTE | ~2021-09-07 | US_ITS ---
EXAMINATION: US VENOUS ULTRASOUND WITH DOPPLER LOWER EXTREMITY, RIGHT CLINICAL INFORMATION: Pain. swelling behind the knee COMPARISON: None TECHNIQUE: Ultrasound of the deep veins is performed from the hip to the calf with compression sonography and color and pulse Doppler assessment. Spectral analysis with color-flow imaging is performed. FINDINGS: There is normal venous compression and respiratory variation and augmented flow. The visualized common femoral vein, superficial femoral vein, profunda femoral vein, popliteal vein, and the trifurcation region shows no evidence of deep venous thrombosis. There is a popliteal cyst measuring 2.8 x 3.1 x 0.7 cm If the patient's symptoms persist, followup ultrasound in 5 days 7 days might be of value to exclude proximal propagation from a non-visualized calf vein. US/US venous duplex LE RT IMPRESSION: 1. No DVT demonstrated in the right lower extremity. 2. Popliteal cysts.
[2021-09-07 15:53] VITALS: BP 142/77; PULSE 93; RESP 18; TEMP 36.5; O2SAT 97; BMI 27.2
--- NOTE | 2021-09-07 16:47 | ED_ITS ---
HPI - Extremity Problem General Chief complaint: Extremity Problem Stated complaint: rt. leg behind knee bruised and swollen Time Seen by Provider: 09/07/21 16:37 Source: patient Mode of arrival: ambulatory Limitations: no limitations History of Present Illness HPI Narrative: 45-year-old female with a history of abnormal uterine bleeding started on Provera about 1 month ago here with reports of bruising behind the right leg for several days. Patient also reports pain and swelling. No known injury or trauma. No associated numbness, tingling, weakness. Patient tells me that she was seen by Gynecology on Sunday and had endometrial biopsy and she is waiting further reports from these. No previous history of blood clots. No family history of blood clots. No recent travel or surgery. Patient denies any chest pain or shortness of breath. No previous injury to the knee or leg. Related Data Previous Rx's Medication Instructions Recorded lidocaine 5 % topical patch 1 patch topical DAILY PRN pain #15 05/20/21 ea medroxyprogesterone 10 mg tablet 10 mg PO DAILY Abnormal uterine 08/29/21 (Provera) bleeding 30 days #30 tabs Allergies Allergy/AdvReac Type Severity Reaction Status Date / Time No Known Allergies Allergy Verified 08/29/21 12:13 Review of Systems Review of Systems: Yes all other systems are reviewed and are negative Constitutional: Constitutional: Reports no additional constitutional complaints, Denies body ache(s), Denies chills, Denies fever(s), Denies headache(s) and Denies weakness Eyes: Eyes: Reports no additional eye complaints and Denies change in vision ENT: Reports system reviewed and no additional complaints, except as documented, Denies dizziness, Denies headache(s), Denies nasal congestion, Denies nasal discharge and Denies neck pain Cardiovascular: Cardiovascular: Reports no additional cardiovascular complaints, Denies chest pain, Denies leg edema and Denies dyspnea Respiratory: Respiratory: Reports no additional respiratory complaints, Denies cough and Denies dyspnea Gastrointestinal: Gastrointestinal: Reports no additional gastrointestinal complaints, Denies abdominal pain, Denies diarrhea, Denies nausea and Denies vomiting Genitourinary: Genitourinary: Reports no additional female genitourinary complaints and Denies urinary incontinence Musculoskeletal: Musculoskeletal: Reports no additional musculoskeletal complaints, Denies back pain, Denies arthralgias, Denies joint swelling, Denies neck pain, Denies numbness and Denies tingling Integumentary/Breasts: Skin/Breast: Reports system reviewed and no additional complaints, except as docu and Denies rash Neurologic: Reports system reviewed and no additional complaints, except as documented, Denies Abnormal speech present, Denies dizziness, Denies headache(s), Denies numbness, Denies tingling and Denies weakness PMFSH Past Medical History Attestation statement: The following information was validated with the patient. Source: old records reviewed and nursing notes reviewed Surgical History Previous back surgery Social History Social History Patient Tobacco Use Status: Current everyday Tobacco user Substance Use Type: Marijuana Advance Directives: No Advance Directives Information Provided: No Physical Exam Vital Signs: Vital Signs: Last Vital Signs Temp 97.7 F 09/07/21 15:53 Pulse 93 09/07/21 15:53 Resp 18 09/07/21 15:53 BP 142/77 H 09/07/21 15:53 Pulse Ox 97 09/07/21 15:53 O2 Del Method 09/07/21 15:53 BMI result Body Mass Index 27.2 Const: General: cooperative, healthy appearing, comfortable and no acute distress Orientation/consciousness: patient oriented x3 Limitations: no limitations HEENT: Head: Yes normal to inspection Ears: hearing grossly normal bilaterally General nose exam: Normal external nose present Face and si nus: Yes normal facial exam Mouth: Normal oral and palatal mucosa present Throat: Yes posterior oropharynx normal Eyes: General: appearance normal, both eyes and all related structures Pupils: Equal, round and reactive pupils present Neck: Neck: Yes normal visual inspection Chest: Chest palpation & inspection: normal inspection of the chest Resp: Effort & Inspection: normal respiratory effort Auscultation: clear to auscultation bilaterally Cardio: Rate: regular rate Rhythm: regular rhythm Peripheral pulses: Peripheral pulses 2+ throughout GI: Inspection: Yes normal to inspection Palpation (GI): Soft to palpation and nontender Auscultation: normal bowel sounds Back/Spine/Pelvis: Thoracic/Lumbar Spine: thoracic and lumbar spine normal to inspection Skin: General skin exam: no rashes or lesions noted Neuro: General: patient oriented x3, no focal motor deficits and normal sensa tion to monofilament Cranial nerves: Yes Equal, round and reactive pupils present Cognition (Neuro): normal cognition Speech: No Abnormal speech present Gait exam (Neuro): Normal gait present Motor exam (neuro): 5/5 motor strength present throughout Extrem: Other: To the right posterior knee and upper posterior calf there is ecchymosis. There is tenderness and swelling to the posterior right knee. There is full range of motion of the knee. Neurovascular intact distally. Palpable DP and PT pulses. No redness or warmth. General: Yes normal to inspection Course Course Course Narrative: 45-year-old female on Provera here with atraumatic right posterior knee pain, swelling and bruising. Will check ultrasound Reevaluation(s) Reevaluation #1: Labs unremarkable. Ultrasound is negative for DVT but does show a right Elder cyst. Patient was placed in Neil wrap and given crutches for home. She can follow-up with orthopedics for any persistent symptoms. Reviewed worrisome signs symptoms of when to return to the emergency department. Comfortable discharge home. Time: 19:00 MDM - Extremity (Nontraumatic) MDM Narrative Medical decision making narrative: DVT, contusion, Elder cyst Medical Records Attestation: I reviewed the patient's medical records. Lab Data Attestation: I reviewed the patient's lab results. Result diagrams: 09/07/21 16:45 09/07/21 16:45 Labs: Lab Results 09/07/21 09/07/21 Range/Units 16:45 16:45 WBC 9.5 (4.8-10.8) X10*3/uL RBC 4.16 L (4.20-5.50) X10*6/uL Hgb 12.9 (12.0-16.0) g/dl Hct 37.8 (37.0-47.0) % MCV 90.9 (80.0-98.0) fL MCH 31.0 (27.0-33.0) pg MCHC 34.1 (31.0-35.0) g/dl RDW 14.0 (11.0-16.0) % Plt Count 212 (160-400) X10*3/uL MPV 9.4 (9.4-12.3) fL Immature Gran % (Auto) 0.3 (0.0-0.4) % Neut % (Auto) 76.8 H (45-73) % Lymph % (Auto) 17.1 L (20-40) % [place] % (Auto) 5.2 (2-11) % Eos % (Auto) 0.3 (0-4) % Baso % (Auto) 0.3 (0-2) % Lymph # (Auto) 1.6 (1.2-4.9) X10*3/uL [place] # (Auto) 0.5 (0.1-1.2) X10*3/uL Eos # (Auto) 0.0 (0.0-0.4) X10*3/uL Baso # (Auto) 0.0 (0.0-0.2) X10*3/uL Abs Immat Gran (auto) 0.03 (0.00-0.03) X10*3/uL Absolute Neuts (auto) 7.3 (2.0-8.3) x10*3/uL Absolute Nucleated RBC 0.000 (0.0-0.012) X10*3/uL Nucleated RBC % (auto) 0.0 (0.0-0.2) /100WBC Sodium 140 (135-145) mmol/L Potassium 3.7 D (3.3-5.1) mmol/L Chloride 108 (96-108) mmol/L Carbon Dioxide 26 (22-29) mmol/L Anion Gap 10 L (12-20) BUN 14 (9-16) mg/dL Creatinine 0.77 (0.5-1.4) mg/dL Estim Creat Clear Calc 73.4 Estimated GFR > 60 Random Glucose 137 H (60-115) mg/dL Calcium 8.9 (8.4-10.2) mg/dL Total Bilirubin 0.3 (0.0-1.0) mg/dL AST 15 (5-31) U/L ALT 15 (0-31) U/L Alkaline Phosphatase 36 L (39-117) U/L Total Protein 6.0 L (6.5-8.0) g/dL Albumin 3.9 (3.5-5.0) g/dL Imaging Data Venous US: Attestation: I personally reviewed and interpreted this imaging study as fidencio stone: Radiologist's impression: [address] [address] Ultrasound Report Signed Patient: Karin Stokes MR#: [id number] : 1975 Acct:[id number] Age/Sex: 45 / F ADM Date: 09/07/21 Loc: .ED Attending Dr: Ordering Physician: Viri Gregory NP Date of Service: 09/07/21 Procedure(s): US venous duplex LE RT Accession Number(s): [id number] cc: Viri Gregory NP~ EXAMINATION:? US VENOUS ULTRASOUND WITH DOPPLER LOWER EXTREMITY, RIGHT CLINICAL INFORMATION:? Pain. swelling behind the knee COMPARISON:? None TECHNIQUE: Ultrasound of the deep veins is performed from the hip to the calf with compression sonography and color and pulse Doppler assessment. Spectral analysis with color-flow imaging is performed. FINDINGS: There is normal venous compression and respiratory variation and augmented flow. The visualized common femoral vein, superficial femoral vein, profunda femoral vein, popliteal vein, and the trifurcation region shows no evidence of deep venous thrombosis. There is a popliteal cyst measuring 2.8 x 3.1 x 0.7 cm If the patient's symptoms persist, followup ultrasound in 5 days 7 days might be of value to exclude proximal propagation from a non-visualized calf vein. US/US venous duplex LE RT IMPRESSION: 1. No DVT demonstrated in the right lower extremity. 2. Popliteal cysts. Discharge Plan Discharge Clinical Impression: Elder cyst Patient Disposition: Home, Self-Care Instructions: Bakers Cyst (ED) Additional Instructions: there is no blood clot under ultrasound your blood work is normal ice to the knee as needed Motrin for pain Neil wrap and crutches the next few days you may follow-up with orthopedics for any persistent symptoms Prescriptions: No Action lidocaine 5 % adhesive patch,medicated 1 patch topical DAILY PRN (Reason: pain) Qty: 15 0RF Rx Instructions: leave on most painful area for up to 12 hrs medroxyprogesterone [Provera] 10 mg tablet 10 mg PO DAILY 30 Days Qty: 30 0RF Referrals: Herbie Mcleod MD [Physician] - 1 week (for persistent symptoms ) Stand Alone Forms: Work/School Release Interventions: ED Discharge Assessment Last Done: 09/07/21 19:15 Discharge Date/Time: 09/07/21 19:16
[2021-09-07 16:52] LABS: MANUAL DIFF FLAG NO
[2021-09-07 16:53] LABS: Basophils Percent Auto 0.3 % (0-2); Eosinophils Percent Auto 0.3 % (0-4); Hematocrit 37.8 % (37.0-47.0); Hemoglobin 12.9 g/dl (12.0-16.0); Imm Gran Abs Auto 0.03 X10*3/uL (0.00-0.03); Imm Gran Pct Auto 0.3 % (0.0-0.4); Lymphocytes Absolute Auto 1.6 X10*3/uL (1.2-4.9); Lymphocytes Percent Auto 17.1 % (20-40); Mean Corpuscular HGB Conc 34.1 g/dl (31.0-35.0); Mean Corpuscular Volume 90.9 fL (80.0-98.0); Mean Platelet Volume 9.4 fL (9.4-12.3); Monocytes Absolute Auto 0.5 X10*3/uL (0.1-1.2); Monocytes Percent Auto 5.2 % (2-11); Neutrophils Absolute Auto 7.3 x10*3/uL (2.0-8.3); Neutrophils Percent Auto 76.8 % (45-73); Platelet Count 212 X10*3/uL (160-400); Red Blood Count 4.16 X10*6/uL (4.20-5.50); White Blood Count 9.5 X10*3/uL (4.8-10.8)
[2021-09-07 17:08] LABS: Alanine Aminotransferase 15 U/L (0-31); Albumin Level 3.9 g/dL (3.5-5.0); Alkaline Phosphatase 36 U/L (39-117); Anion Gap 10 (12-20); Aspartate Amino Transferase 15 U/L (5-31); Bilirubin Total 0.3 mg/dL (0.0-1.0); Blood Urea Nitrogen 14 mg/dL (9-16); Calcium 8.9 mg/dL (8.4-10.2); Carbon Dioxide 26 mmol/L (22-29); Chloride 108 mmol/L (96-108); Creatinine Clr Calc Pharmacy 73.4; Estimated Glomerular Filt Rate > 60; Glucose Random 137 mg/dL (60-115); Potassium 3.7 mmol/L (3.3-5.1); Sodium 140 mmol/L (135-145)
--- NOTE | 2021-09-07 17:20 | PC.NURSE ---
patient awake and alert. skin pwd. resp even and non labored. speaking in full, clear sentences. c/o right leg pain, worse when bending leg. patient to ultrasound at this time.
== END 2021-09-07 19:16 | disposition home or self-care (01) ==
PROVIDERS: Emergency Provider Emergency Medicine Emergency Medical Services
DX: M71.21 Synovial cyst of popliteal space [Baker], right knee (principal); M79.604 Pain in right leg
CPT/HCPCS: 36415; 80053; 85025; 93971; 99282; 99284

== ENCOUNTER 2021-09-12 13:18 | Outpatient (REF) | payer OTHER, SELFPAY ==
--- NOTE | ~2021-09-12 | MM_ITS ---
EXAMINATION: MM SCREENING DIGITAL BREAST TOMOSYNTHESIS, BILATERAL CLINICAL INFORMATION: Screening. Asymptomatic. Prior outside mammography in [place] over 10-15 years ago, purged. The lifetime risk of breast cancer based on the Tyrer-Cuzick Model is 8%. COMPARISON: None (current study represents new baseline exam). TECHNIQUE: Digital breast tomosynthesis is performed in both the craniocaudal and mediolateral oblique views along with computer-aided detection (CAD). Synthesized 2D images are generated from the tomosynthesis. FINDINGS: The breasts are heterogeneously dense, which may obscure small masses (ACR BI-RADS breast composition Category c). There is no underlying mass or architectural abnormality. No abnormal calcifications. The axilla are unremarkable. The skin contours are smooth. MM/MM tomosynthesis screening BI IMPRESSION: No mammographic evidence of malignancy. ASSESSMENT: BI-RADS 1: Negative RECOMMENDATION: Routine annual mammography screening. This patient's information was entered into a reminder system with a target due date for their next mammogram.
== END 2021-09-12 13:19 | disposition home or self-care (01) ==
LOC: HO.MAMMO 13:18
PROVIDERS: Visit Provider Obstetrics & Gynecology
DX: Z12.31 Encounter for screening mammogram for malignant neoplasm of breast (principal)
CPT/HCPCS: 77063; 77067

== ENCOUNTER → 2021-10-10 12:42 | Outpatient (BNVA) | payer OTHER, SELFPAY | PROVIDERS: Visit Provider Obstetrics & Gynecology | DX: N93.9 Abnormal uterine and vaginal bleeding, unspecified (principal) | CPT/HCPCS: 99212 ==

== ENCOUNTER 2021-10-11 08:05 | Outpatient (REF) | payer OTHER, SELFPAY | END 2021-10-11 08:06 | disposition home or self-care (01) | LOC: HO.HOSX 08:05 | PROVIDERS: Visit Provider Physician Assistant | DX: Z13.89 Encounter for screening for other disorder (principal) ==

== ENCOUNTER 2021-11-07 15:19 | Outpatient (REF) | payer OTHER, SELFPAY ==
[2021-11-07 20:29] LABS: CT PCR NOT DETECTED (Not Detect.); NG PCR NOT DETECTED (Not Detect.)
[2021-11-08 13:39] LABS: BV Int Neg Control Negative (Negative); BV Int Pos Control Positive (Positive)
== END 2021-11-07 15:20 | disposition home or self-care (01) ==
LOC: HO.LAB 15:19
PROVIDERS: Visit Provider Obstetrics & Gynecology
DX: L98.9 Disorder of the skin and subcutaneous tissue, unspecified (principal); Z11.3 Encounter for screening for infections with a predominantly sexual mode of transmission
CPT/HCPCS: 87480; 87491; 87510; 87591; 87660; 99212

== ENCOUNTER → 2021-12-12 15:38 | Outpatient (BNVA) | payer OTHER, SELFPAY | PROVIDERS: Visit Provider Surgery | DX: K62.89 Other specified diseases of anus and rectum (principal) | CPT/HCPCS: 46600; 99202 ==

== ENCOUNTER 2021-12-19 09:06 | Emergency (ER) | payer OTHER, SELFPAY ==
[2021-12-19 11:02] VITALS: BP 107/74; PULSE 71; RESP 18; TEMP 36.9; O2SAT 99; BMI 26.5
== END 2021-12-19 12:12 | disposition left against medical advice (07) ==
PROVIDERS: Emergency Provider Emergency Medicine
DX: N89.8 Other specified noninflammatory disorders of vagina (principal); R10.2 Pelvic and perineal pain
CPT/HCPCS: 81025; 99212; 99281

== ENCOUNTER 2021-12-19 12:32 | Outpatient (REF) | payer OTHER, SELFPAY ==
[2021-12-19 16:05] LABS: CT PCR NOT DETECTED (Not Detect.); NG PCR NOT DETECTED (Not Detect.)
[2021-12-20 11:09] LABS: BV Int Neg Control Negative (Negative)
[2021-12-20 11:10] LABS: BV Int Pos Control Positive (Positive)
== END 2021-12-19 12:33 | disposition home or self-care (01) ==
LOC: HO.LNP 12:32
PROVIDERS: Visit Provider Obstetrics & Gynecology
DX: Z11.3 Encounter for screening for infections with a predominantly sexual mode of transmission (principal); B37.3 Candidiasis of vulva and vagina
CPT/HCPCS: 87480; 87491; 87510; 87591; 87660

== ENCOUNTER 2021-12-27 07:24 | Day surgery (SDC) | payer OTHER, SELFPAY ==
[2021-12-22 13:08] VITALS: BMI 26.5
--- NOTE | 2021-12-26 10:40 | HO.ANESPROP2 ---
Documented by User: Triny García NP 12/26/21 10:41 HPI - Anesthesia Eval Consult details Narrative: 46yo F for Excision Anal Lesion PMFSH Active Problems Active Problems: All Active Problems (Updated 12/22/21 @ 13:07 by Radha Barnett RN) Abnormal uterine bleeding (AUB) (Acute) Skin lesion (Acute) Candidal vulvovaginitis (Acute) Mass of anus (Acute) Past Medical History Medical History Bipolar disorder Mass of anus Family History Family History Maternal Grandmother Lung cancer, Onset Age: 63 Maternal Aunt Lung cancer Paternal Grandmother Ovarian cancer Surgical History Surgical History History of Previous back surgery Social History Social History Are you a primary transitions rn care coordinator to a significant other at home: No Do you presently have visiting nurse or other home services: No Patient Tobacco Use Status: Current everyday Tobacco user Tobacco use type: Cigarette Cigarettes Per Day: 10 Years Smoked: 25 Substance Use Type: Marijuana Have you been hit, kicked, punched, or otherwise hurt by someone within the past year? If so, by whom?: No (Patient reports feeling safe and secure in her home at this time.) Are you DNR?: No Advance Directives: No Advance Directives Information Provided: Yes Advance Directives on File: No Recently lost weight without trying: No Nutrition Risks: No Nutritional Risk Patient : No FDLMP: 11/11/2021 : No Poor oral hygiene: No Meds Allergies Allergy/AdvReac Type Severity Reaction Status Date / Time No Known Allergies Allergy Verified 12/22/21 13:05 Home Medications Medication Instructions Recorded Confirmed Last Taken Type lamotrigine 5 mg chewable 10 mg 12/22/21 Unknown History dispersible tablet (Lamictal) Exam Exam Date and Time: December 26, 2021 1040 Height,Weight and Vital Signs: Height 5 ft Weight 61.689 kg Pertinent Lab Results Pertinent Lab Results: Laboratory Tests 09/07/21 09/07/21 16:45 16:45 WBC 9.5 Hgb 12.9 Hct 37.8 Plt Count 212 Sodium 140 Potassium 3.7 D Chloride 108 Carbon Dioxide 26 BUN 14 Creatinine 0.77 Assessment and Plan Assessment Anesthesia Assessment: Chart Reviewed Documented by User: Cricket Ortiz MD 12/27/21 08:10 [facility] Past Medical History Medical History Bipolar disorder Mass of anus Family History Family History Maternal Grandmother Lung cancer, Onset Age: 63 Maternal Aunt Lung cancer Paternal Grandmother Ovarian cancer Family history of problems with anesthesia: No Surgical History Surgical History History of Previous back surgery History of Problems with Anesthesia: No Social History Social History Are you a primary transitions rn care coordinator to a significant other at home: No Do you presently have visiting nurse or other home services: No Patient Tobacco Use Status: Current everyday Tobacco user Tobacco use type: Cigarette Cigarettes Per Day: 10 Years Smoked: 25 Substance Use Type: Marijuana Have you been hit, kicked, punched, or otherwise hurt by someone within the past year? If so, by whom?: No (Patient reports feeling safe and secure in her home at this time.) Are you DNR?: No Advance Directives: No Advance Directives Information Provided: Yes Advance Directives on File: No Recently lost weight without trying: No Nutrition Risks: No Nutritional Risk Patient : No FDLMP: 11/11/2021 : No Poor oral hygiene: No Meds Allergies Allergy/AdvReac Type Severity Reaction Status Date / Time No Known Allergies Allergy Verified 12/22/21 13:05 Home Medications Medication Instructions Recorded Confirmed Last Taken Type lamotrigine 5 mg chewable 10 mg 12/22/21 Unknown History dispersible tablet (Lamictal) Exam Airway Mallampati Class: II TM Dist: >3cm Neck ROM: Full Loose/Missing/Broken Teeth: No Heart: [id number] Lungs: cta b/l Assessment and Plan Assessment Anesthesia Assessment: Anesthesia Plan Discussed Final Anesthetic Review Family History of Problems with Anesthesia: No History of Problems with Anesthesia: No NPO: Yes ASA Class: II Final Preanesthetic Review: No Changes in Pt Med Stat, Meds/Allgs Chart Reviewed, Consent Obtained/Reviewed and Anes Risks/Benef Reviewed Patient Risk: Intermediate Procedure Risk: Intermediate Assessment/Block/Sedation in SS: Assess/Block/Sedation-SS Anesthetic Plan Anesthetic Plan: GA and Agree w/ Assess. and Plan Disposition: Standard PACU
[2021-12-27 07:39] VITALS: BP 104/62; PULSE 70; RESP 18; TEMP 36.1; O2SAT 100
[2021-12-27 07:59] LABS: UPreg QC Valid YES; Urine Pregnancy NEGATIVE (NEGATIVE)
[2021-12-27] MEDS: Lactated Ringers 1,000 ML 100 ML IVCONT (07:59)
--- NOTE | 2021-12-27 08:07 | MHC.SHP ---
Pre-Procedural Eval Section A Date of Service: 12/27/21 The patient is an INPATIENT: No Changes since office visit: No Cold of Flu in the past 2 weeks, No New Medical Problems, No Changes in Medication and No Patient answered all questions The History & Physical has been completed within 30 days and I have reviewed it.: Yes Section B Chief Complaint: Other specified diseases of anus and rectum Allergies: Allergies Allergy/AdvReac Type Severity Reaction Status Date / Time No Known Allergies Allergy Verified 12/22/21 13:05 Plan I have reviewed the history and physical and performed a pertinent physical examination on my patient. No changes have occurred unless specified.
--- NOTE | 2021-12-27 09:12 | W.PM.OPN ---
Operative Note Operative Note Date of Service: 12/27/21 Narrative: Preop diagnosis: Anal lesion at the verge Postop diagnosis: Anal polyp at the anal verge 2 cm in size Procedure: Exam under anesthesia, excision of an anal polyp Surgeon: Jim Salcedo MD The patient is a 46-year-old female with an anal lesion resembling a polyp, on the right anal verge. This about 2 cm in size. She understood the technique of excision under anesthesia. She was aware of the risks, benefits, and alternatives . She was brought to the operating room placed in prone zhang-knife position under general anesthesia via endotracheal tube. the buttocks were retracted with wide tape laterally. The perianal area was prepped and draped in the usual sterile fashion. A surgical time-out was done. The patient received clindamycin 600 mg preoperatively Examination of the anal orifice revealed a polypoid mass on the right side about 2 cm in length . I infiltrated the perianal area with lidocaine 1%. I inserted a Darby Rooney retractor. I examined the anal canal circumferentially. This mass on the anal verge was seen and seemed to be continues with an a hemorrhoidal column on the right as well There were no other lesions seen. There was no fissure . I applied a Benitez grasper at the anal polyp. I made a figure of 8 stitch just the dentate line proximal to its stalk using a chromic 3-0. I made an incision around this polyp using blade 15. I excised this polyp above the plane of sphincters using Metzenbaum scissors all the way to the dentate line. This was sent as a specimen. Closed this incision with a running chromic 3-0 stitch. Additional hemostatic [id number] sutures were placed as well. Once hemostasis was ensured, I infiltrated the perianal area with Marcaine 0.5% for postop analgesia. The procedure was then completed . The patient tolerated procedure well. There were no complication noted. Initial and final counts of sponges and instruments were correct. Estimated blood loss was about 20 cc . The patient was extubated without difficulty and transferred to the recovery room with stable vital signs.
[2021-12-27 09:22] VITALS: BP 155/81; PULSE 85; RESP 14; TEMP 36.6; O2SAT 100
[2021-12-27 09:27] VITALS: BP 136/75; PULSE 79; RESP 16; O2SAT 100
[2021-12-27 09:32] VITALS: BP 136/75; PULSE 74; RESP 16; O2SAT 100
[2021-12-27 09:37] VITALS: BP 136/75; PULSE 68; RESP 16; O2SAT 99
[2021-12-27 09:52] VITALS: BP 122/60; PULSE 63; RESP 18; TEMP 36.6; O2SAT 100
[2021-12-27] MEDS: oxyCODONE HCl Immed Release 5 MG TABLET PO (09:56)
[2021-12-27] MEDS: Throat Lozenge, Medicated LOZENGE 1 LOZENGE MUCOUS MEM (09:58)
== END 2021-12-27 10:43 | disposition home or self-care (01) ==
PROVIDERS: Nurse Practitioner; Visit Provider Surgery
PROC: (CPT 46922; principal; 2021-12-27 09:10)
DX: K62.0 Anal polyp (principal); F17.210 Nicotine dependence, cigarettes, uncomplicated; F12.90 Cannabis use, unspecified, uncomplicated; Z88.1 Allergy status to other antibiotic agents; Z79.899 Other long term (current) drug therapy
CPT/HCPCS: 46922; 81025; 88305; J1100; J2250; J2405; J2795; J3010

== ENCOUNTER 2021-12-30 10:02 | Emergency (ER) | payer OTHER, SELFPAY ==
[2021-12-30 11:25] VITALS: BP 124/75; PULSE 72; RESP 16; TEMP 36.9; O2SAT 97; BMI 26.5
== END 2021-12-30 16:42 | disposition left against medical advice (07) ==
PROVIDERS: Emergency Provider Emergency Medicine
DX: R60.0 Localized edema (principal)
CPT/HCPCS: 99281

== ENCOUNTER 2022-05-21 12:48 | Emergency (ER) | payer OTHER, SELFPAY ==
--- NOTE | ~2022-05-21 | CT_ITS ---
EXAMINATION: CT ABDOMEN AND PELVIS WITHOUT CONTRAST CLINICAL INFORMATION: Flank pain and dysuria with question of pyelonephritis and stones COMPARISON: CT abdomen pelvis 08/18/2021 TECHNIQUE: Multidetector volumetric imaging was performed from the superior aspect of the liver through the pubic symphysis. Sagittal and coronal reformatted images were obtained on the technologist's workstation. This CT examination was performed using dose optimization techniques as appropriate, variously including the following: *Automated exposure control *Adjustment of mA and/or kV according to patient size (this includes techniques or standardized protocols for targeted exams where dose is matched to indication/reason for exam; i.e. extremities or head) *Use of iterative reconstruction technique DLP: 491 mGy-cm FINDINGS: LUNG BASES: The visualized lung bases are unremarkable. LIVER, GALLBLADDER, AND BILIARY TREE: The liver is mildly enlarged measuring 17.5 cm but is normal in shape and attenuation. No focal hepatic lesion or biliary ductal dilatation is present. The gallbladder contains 2 large calcified stones measuring about 1.5 cm each. Again seen is some mild thickening in the gallbladder at its base. No gross inflammatory changes or pericholecystic fluid collections are seen. PANCREAS: Pancreas not well evaluated without oral or IV contrast but appears unremarkable. SPLEEN: Unremarkable. ADRENAL GLANDS: Unremarkable. KIDNEYS AND URETERS: The kidneys are normal in size, shape, and attenuation. No hydronephrosis, hydroureter, or calculi seen. No perinephric stranding. BLADDER: Unremarkable. GASTROINTESTINAL TRACT: The small and large bowel are unremarkable. The appendix is unremarkable. ABDOMINAL WALL: No significant hernia is appreciated. LYMPH NODES: Normal. VASCULAR: Unremarkable. PELVIC VISCERA: Uterus appears enlarged. An abnormal adnexal mass or free fluid is not seen. OSSEOUS STRUCTURES: Mild degenerative changes present in the spine most marked at L5-S1. CT/CT abdomen pelvis wo IV con IMPRESSION: 1. Hepatomegaly. 2. Cholelithiasis. 3. Mildly enlarged uterus. 4. A cause for the left flank pain and dysuria has not been found. Fleischner guidelines were followed.
[2022-05-21 12:56] VITALS: BP 137/103; PULSE 110; RESP 18; TEMP 36.9; O2SAT 100; BMI 27.2
[2022-05-21 13:31] LABS: MANUAL DIFF FLAG NO
[2022-05-21 13:33] LABS: Appearance Urine Clear; Color Urine Yellow; Glucose Urine UA Negative (Negative); Leukocyte Esterase Urine Negative (Negative); Nitrite Urine Negative (Negative); Specific Gravity - Urine 1.025 (1.005-1.025); UMIC TRIGGER UACC YES; Urine Blood Large (3+) (Negative); Urine Ketones Trace mg/dL (Negative); Urine Protein Negative (Neg-Trace)
[2022-05-21 13:34] LABS: Basophils Absolute Auto 0.1 X10*3/uL (0.0-0.2); Basophils Percent Auto 0.5 % (0-2); Eosinophils Absolute Auto 0.1 X10*3/uL (0.0-0.4); Eosinophils Percent Auto 1.1 % (0-4); Hemoglobin 14.2 g/dl (12.0-16.0); Imm Gran Abs Auto 0.04 X10*3/uL (0.00-0.03); Imm Gran Pct Auto 0.4 % (0.0-0.4); Lymphocytes Absolute Auto 2.2 X10*3/uL (1.2-4.9); Lymphocytes Percent Auto 20.3 % (20-40); Mean Corpuscular Hemoglobin 29.2 pg (27.0-33.0); Mean Corpuscular Volume 88.5 fL (80.0-98.0); Mean Platelet Volume 9.1 fL (9.4-12.3); Monocytes Absolute Auto 0.7 X10*3/uL (0.1-1.2); Monocytes Percent Auto 6.5 % (2-11); Neutrophils Absolute Auto 7.7 x10*3/uL (2.0-8.3); Neutrophils Percent Auto 71.2 % (45-73); Platelet Count 267 X10*3/uL (160-400); Red Blood Count 4.86 X10*6/uL (4.20-5.50); Red Cell Distribution Width 13.7 % (11.0-16.0); White Blood Count 10.8 X10*3/uL (4.8-10.8)
[2022-05-21 13:38] LABS: Bacteria Urine None Seen (None Seen); Hyaline Casts Urine 0-2 /LPF (0-2); RBC Urine >20 /HPF (0-2); Squamous Epithelial Cell Urine 0-2 /HPF (0-2); WBC Urine 0-5 /HPF (0-5)
[2022-05-21 13:51] LABS: Alanine Aminotransferase 22 U/L (0-31); Albumin Level 4.4 g/dL (3.5-5.0); Alkaline Phosphatase 44 U/L (39-117); Anion Gap 14 (12-20); Aspartate Amino Transferase 26 U/L (5-31); Bilirubin Total 0.8 mg/dL (0.0-1.0); Blood Urea Nitrogen 11 mg/dL (9-16); Carbon Dioxide 26 mmol/L (22-29); Chloride 104 mmol/L (96-108); Creatinine Clr Calc Pharmacy 77.7; Estimated Glomerular Filt Rate > 60; Glucose Random 94 mg/dL (60-115); Potassium 4.2 mmol/L (3.3-5.1); Sodium 140 mmol/L (135-145); Total Protein 6.9 g/dL (6.5-8.0)
--- NOTE | 2022-05-21 15:58 | ED.FEMALEGU ---
HPI - Female Genitourinary General Chief complaint: Urogenital-Female Stated complaint: Needs IV antibiotics Time Seen by Provider: 05/21/22 15:57 Source: patient Mode of arrival: ambulatory Limitations: no limitations History of Present Illness HPI Narrative: 46-year-old female who presents emergency department for evaluation of lower abdominal pain, left flank pain, chills, headache, dysuria and frequency. The patient states that she had anal polyp in the perineal area which was removed September 2021. She states that since that time she believes that stool gets accumulated in the area and it is hard for herself after she has a bowel movement. She states that after the procedure she did have a urinary tract infection. She now believes that she has a urinary tract infection today. She states that over the past 2 days she has shaking chills but no fever. She states she is feeling fatigued. She has pain in both her left flank and suprapubic/left lower quadrant area. She states the suprapubic pain is an intermittent dull ache which is 4/10 at its worst. She states that the flank pain is a sharp/dull ache and is 8/10. Patient states that she has also noted hematuria over the last 3 days. Patient's review of systems was also positive for rhinorrhea and myalgias of her legs otherwise were unremarkable, she denied sore throat, cough, chest pain, shortness of breath, dyspnea on exertion, nausea vomiting or diarrhea. Related Data Home Medications Medication Instructions Recorded Confirmed lamotrigine 5 mg chewable 10 mg 12/22/21 dispersible tablet (Lamictal) Previous Rx's Medication Instructions Recorded lidocaine 5 % topical patch 1 patch topical DAILY PRN pain #15 05/20/21 ea medroxyprogesterone 10 mg tablet 10 mg PO DAILY Abnormal uterine 10/10/21 (Provera) bleeding 30 days #30 tabs fluconazole 150 mg tablet 150 mg PO ONCE 1 day #1 tab 12/19/21 ibuprofen 600 mg tablet 600 mg PO Q6H PRN pain #30 tabs 12/27/21 oxycodone-acetaminophen 5 mg-325 1 tab PO Q4-6H PRN pain #25 tabs 12/27/21 mg tablet (Percocet) doxycycline hyclate 100 mg tablet 100 mg PO Q12H 10 days #20 tabs 02/26/23 metronidazole 500 mg tablet 500 mg PO BID 10 days #20 tabs 05/21/22 Allergies Allergy/AdvReac Type Severity Reaction Status Date / Time cephalexin [From Keflex] Allergy Swelling Verified 12/27/21 08:30 Review of Systems Review of Systems: Yes all other systems are reviewed and are negative [facility] Past Medical History Attestation statement: The following information was validated with the patient. [facility] Narrative: Social history: She does smoke cigarettes. She denies alcohol use. She occasionally smokes marijuana. Medical History (Updated 05/21/22 @ 18:55 by Frank Rebollar MD) Bipolar disorder Family history of uterine cancer Mass of anus Surgical History History of History of excision of lesion (~12/27/21) Previous back surgery Family History Family History Maternal Grandmother Lung cancer, Onset Age: 63 Maternal Aunt Lung cancer Paternal Grandmother Ovarian cancer Social History Social History Are you a primary career technical counselor to a significant other at home: No Do you presently have visiting nurse or other home services: No Patient Tobacco Use Status: Current everyday Tobacco user Tobacco use type: Cigarette Cigarettes Per Day: 10 Years Smoked: 25 Substance Use Type: Marijuana Advance Directives: No Advance Directives Information Provided: No Physical Exam Vital Signs: Vital Signs: Last Vital Signs Temp 97.8 F 05/21/22 18:11 Pulse 82 05/21/22 18:11 Resp 17 05/21/22 18:11 BP 113/52 L 05/21/22 18:11 Pulse Ox 98 05/21/22 18:11 O2 Del Method 05/21/22 18:11 BMI result Body Mass Index 27.2 Const: General: cooperative and no acute distress Orientation/consciousness: oriented to person and oriented to place Limitations: no limitations HEENT: Head: Yes normal to inspection, Yes normocephalic and Yes atraumatic Ears: external ears normal General nose exam: Normal external nose present Face and sinus: Yes normal facial exam Mouth: Normal oral and palatal mucosa present Throat: Yes posterior oropharynx normal Eyes: General: appearance normal, both eyes and all related structures Pupils: Equal, round and reactive pupils present Neck: Neck: Yes normal visual inspection, Yes no lymphadenopathy, Yes trachea midline and Yes supple Chest: Chest palpation & inspection: normal inspection of the chest and normal palpation of entire chest wall Resp: Effort & Inspection: normal respiratory effort and able to speak in complete sentences Auscultation: clear to auscultation bilaterally Cardio: Rate: regular rate Rhythm: regular rhythm Heart sounds: S1 normal heart sound present, S2 normal heart sound present and no murmurs GI: Inspection: Yes normal to inspection Palpation (GI): Soft to palpation, Tenderness to palpation present (GI) in the LLQ ([id number]) and suprapubicly (Moderate) and no guarding Auscultation: normal bowel sounds : Other: Patient's perineal area appears to be normal, there is no tenderness, there is no antrum cutaneous fistula noted, rectal area appears to be normal as well with no obvious fissures or external hemorrhoids. General: Yes CVA tenderness on the left (Moderate tenderness) Back/Spine/Pelvis: Back: CVA tenderness Skin: General skin exam: no rashes or lesions noted Neuro: General: oriented to person and oriented to place Cranial nerves: Yes CN's II-XII intact bilaterally and Yes Equal, round and reactive pupils present Cognition (Neuro): normal cognition Motor exam (neuro): 5/5 motor strength present throughout Extrem: General: Yes normal to inspection Psych: Appearance: grossly normal Speech and movement: Normal speech and movement present Affect: normal affect Attitude: cooperative Medications Administered Discontinued Medications Generic Name Dose Route Start Last Admin Trade Name Annie PRN Reason Stop Dose Admin Sodium Chloride 1,000 mls @ 999 mls/hr 05/21/22 16:12 05/21/22 16:54 Ns IV 05/21/22 17:12 999 mls/hr .Q1H1M STA Administration Levofloxacin 750 mg in 150 mls @ 100 mls/hr 05/21/22 16:15 05/21/22 17:13 Levaquin IV 05/21/22 17:44 100 mls/hr ONCE ONE Administration Ketorolac Tromethamine 15 mg 05/21/22 16:12 05/21/22 16:53 Ketorolac Tromethamine 15 Mg/Ml Vial IVPUSH 05/21/22 16:13 15 mg ONCE STA Administration Ondansetron HCl 4 mg 05/21/22 16:12 05/21/22 16:54 Ondansetron Hcl 4 Mg/2 Ml Vial IVPUSH 05/21/22 16:13 4 mg ONCE ONE Administration Medical Decision Making Medical Decision Making [facility] Narrative: 46-year-old female patient presents emergency department for evaluation of 2 days suprapubic, left lower quadrant and left flank pain with chills, dysuria and frequency. Patient's physical examination did reveal suprapubic and left lower quadrant tenderness as well as left CVA tenderness. I ordered a laboratory evaluation to include CBC, CMP, lipase, lactate, blood cultures x2, urinalysis, urine test. CT scan of the abdomen pelvis with IV contrast will be obtained to evaluate her left lower quadrant and left flank pain. Patient was ordered to get normal saline x1 L, Zofran 4 mg IV and Toradol 15 mg IV. 1848: The patient's laboratory evaluation was normal. Urinalysis and microscopic analysis was consistent with hematuria. CT scan of the abdomen pelvis with IV contrast did not reveal a clear cause for her left lower quadrant and left flank pain. Patient got minimal improvement with the IV Toradol. She was given morphine 4 mg IV. At this time I do not have a clear etiology for her pain. The patient may have urethritis. I will obtain a non clean catch urine for GC and chlamydia. The patient will be treated with doxycycline 100 mg twice a day for 10 days and Flagyl/metronidazole 500 mg twice a day for 10 days. The patient is allergic to cephalosporins therefore she was not given ceftriaxone IM. The patient will be referred to our urologist for re-evaluation of her hematuria and dysuria. Differential Diagnosis Differential diagnosis includes was not limited to acute cystitis, pyelonephritis, urethritis, diverticulitis, kidney stone, ureteral stone, viral illness, COVID-19, influenza Lab Data [facility] Lab Attestation statement: I reviewed the patient's lab results. My independent interpretation patient's laboratory evaluation is as follows: CBC was normal. CMP was normal. Lactic acid was normal. Lipase was normal. Urinalysis and microscopic was positive for blood. 05/21/22 13:08 05/21/22 13:08 Labs: Lab Results 02/26/23 02/26/23 02/26/23 Range/Units 13:08 13:08 13:12 WBC 10.8 (4.8-10.8) X10*3/uL RBC 4.86 (4.20-5.50) X10*6/uL Hgb 14.2 (12.0-16.0) g/dl Hct 43.0 (37.0-47.0) % MCV 88.5 (80.0-98.0) fL MCH 29.2 (27.0-33.0) pg MCHC 33.0 (31.0-35.0) g/dl RDW 13.7 (11.0-16.0) % Plt Count 267 D (160-400) X10*3/uL MPV 9.1 L (9.4-12.3) fL Immature Gran % (Auto) 0.4 (0.0-0.4) % Neut % (Auto) 71.2 (45-73) % Lymph % (Auto) 20.3 (20-40) % [place] % (Auto) 6.5 (2-11) % Eos % (Auto) 1.1 (0-4) % Baso % (Auto) 0.5 (0-2) % Lymph # (Auto) 2.2 (1.2-4.9) X10*3/uL [place] # (Auto) 0.7 (0.1-1.2) X10*3/uL Eos # (Auto) 0.1 (0.0-0.4) X10*3/uL Baso # (Auto) 0.1 (0.0-0.2) X10*3/uL Abs Immat Gran (auto) 0.04 H (0.00-0.03) X10*3/uL Absolute Neuts (auto) 7.7 (2.0-8.3) x10*3/uL Absolute Nucleated RBC 0.000 (0.0-0.012) X10*3/uL Nucleated RBC % (auto) 0.0 (0.0-0.2) /100WBC Sodium 140 (135-145) mmol/L Potassium 4.2 (3.3-5.1) mmol/L Chloride 104 (96-108) mmol/L Carbon Dioxide 26 (22-29) mmol/L Anion Gap 14 (12-20) BUN 11 (9-16) mg/dL Creatinine 0.72 (0.5-1.4) mg/dL Estim Creat Clear Calc 77.7 Estimated GFR > 60 Random Glucose 94 (60-115) mg/dL Lactic Acid (0.5-2.0) mmol/L Calcium 9.0 (8.4-10.2) mg/dL Total Bilirubin 0.8 (0.0-1.0) mg/dL AST 26 (5-31) U/L ALT 22 (0-31) U/L Alkaline Phosphatase 44 (39-117) U/L Total Protein 6.9 (6.5-8.0) g/dL Albumin 4.4 (3.5-5.0) g/dL Lipase (8-78) U/L Urine Color Yellow Urine Appearance Clear Urine pH 6.0 (5.0-9.0) Ur Specific [place] 1.025 (1.005-1.025) Urine Protein Negative (Neg-Trace) mg/dL Urine Glucose (UA) Negative (Negative) mg/dL Urine Ketones Trace (Negative) mg/dL Urine Blood Large (3+) H (Negative) Urine Nitrite Negative (Negative) Ur Leukocyte Esterase Negative (Negative) Urine RBC >20 H (0-2) /HPF Urine WBC 0-5 (0-5) /HPF Ur Squamous Epith Cells 0-2 (0-2) /HPF Urine Bacteria None Seen (None Seen) Hyaline Casts 0-2 (0-2) /LPF COVID-19 (JOSE RAFAEL) (Negative) COVID-19 Clin Com Influenza Type A (YANN) (Negative) Influenza Type B (YANN) (Negative) Influenza A & B Note 05/21/22 05/21/22 05/21/22 Range/Units 16:27 16:28 16:29 WBC (4.8-10.8) X10*3/uL RBC (4.20-5.50) X10*6/uL Hgb (12.0-16.0) g/dl Hct (37.0-47.0) % MCV (80.0-98.0) fL MCH (27.0-33.0) pg MCHC (31.0-35.0) g/dl RDW (11.0-16.0) % Plt Count (160-400) X10*3/uL MPV (9.4-12.3) fL Immature Gran % (Auto) (0.0-0.4) % Neut % (Auto) (45-73) % Lymph % (Auto) (20-40) % [place] % (Auto) (2-11) % Eos % (Auto) (0-4) % Baso % (Auto) (0-2) % Lymph # (Auto) (1.2-4.9) X10*3/uL [place] # (Auto) (0.1-1.2) X10*3/uL Eos # (Auto) (0.0-0.4) X10*3/uL Baso # (Auto) (0.0-0.2) X10*3/uL Abs Immat Gran (auto) (0.00-0.03) X10*3/uL Absolute Neuts (auto) (2.0-8.3) x10*3/uL Absolute Nucleated RBC (0.0-0.012) X10*3/uL Nucleated RBC % (auto) (0.0-0.2) /100WBC Sodium (135-145) mmol/L Potassium (3.3-5.1) mmol/L Chloride (96-108) mmol/L Carbon Dioxide (22-29) mmol/L Anion Gap (12-20) BUN (9-16) mg/dL Creatinine (0.5-1.4) mg/dL Estim Creat Clear Calc Estimated GFR Random Glucose (60-115) mg/dL Lactic Acid 0.6 (0.5-2.0) mmol/L Calcium (8.4-10.2) mg/dL Total Bilirubin (0.0-1.0) mg/dL AST (5-31) U/L ALT (0-31) U/L Alkaline Phosphatase (39-117) U/L Total Protein (6.5-8.0) g/dL Albumin (3.5-5.0) g/dL Lipase 21 (8-78) U/L Urine Color Urine Appearance Urine pH (5.0-9.0) Ur Specific [place] (1.005-1.025) Urine Protein (Neg-Trace) mg/dL Urine Glucose (UA) (Negative) mg/dL Urine Ketones (Negative) mg/dL Urine Blood (Negative) Urine Nitrite (Negative) Ur Leukocyte Esterase (Negative) Urine RBC (0-2) /HPF Urine WBC (0-5) /HPF Ur Squamous Epith Cells (0-2) /HPF Urine Bacteria (None Seen) Hyaline Casts (0-2) /LPF COVID-19 (JOSE RAFEAL) (Negative) COVID-19 Clin Com Influenza Type A (YANN) Negative (Negative) Influenza Type B (YANN) Negative (Negative) Influenza A & B Note See Note 05/21/22 Range/Units 16:29 WBC (4.8-10.8) X10*3/uL RBC (4.20-5.50) X10*6/uL Hgb (12.0-16.0) g/dl Hct (37.0-47.0) % MCV (80.0-98.0) fL MCH (27.0-33.0) pg MCHC (31.0-35.0) g/dl RDW (11.0-16.0) % Plt Count (160-400) X10*3/uL MPV (9.4-12.3) fL Immature Gran % (Auto) (0.0-0.4) % Neut % (Auto) (45-73) % Lymph % (Auto) (20-40) % [place] % (Auto) (2-11) % Eos % (Auto) (0-4) % Baso % (Auto) (0-2) % Lymph # (Auto) (1.2-4.9) X10*3/uL [place] # (Auto) (0.1-1.2) X10*3/uL Eos # (Auto) (0.0-0.4) X10*3/uL Baso # (Auto) (0.0-0.2) X10*3/uL Abs Immat Gran (auto) (0.00-0.03) X10*3/uL Absolute Neuts (auto) (2.0-8.3) x10*3/uL Absolute Nucleated RBC (0.0-0.012) X10*3/uL Nucleated RBC % (auto) (0.0-0.2) /100WBC Sodium (135-145) mmol/L Potassium (3.3-5.1) mmol/L Chloride (96-108) mmol/L Carbon Dioxide (22-29) mmol/L Anion Gap (12-20) BUN (9-16) mg/dL Creatinine (0.5-1.4) mg/dL Estim Creat Clear Calc Estimated GFR Random Glucose (60-115) mg/dL Lactic Acid (0.5-2.0) mmol/L Calcium (8.4-10.2) mg/dL Total Bilirubin (0.0-1.0) mg/dL AST (5-31) U/L ALT (0-31) U/L Alkaline Phosphatase (39-117) U/L Total Protein (6.5-8.0) g/dL Albumin (3.5-5.0) g/dL Lipase (8-78) U/L Urine Color Urine Appearance Urine pH (5.0-9.0) Ur Specific [place] (1.005-1.025) Urine Protein (Neg-Trace) mg/dL Urine Glucose (UA) (Negative) mg/dL Urine Ketones (Negative) mg/dL Urine Blood (Negative) Urine Nitrite (Negative) Ur Leukocyte Esterase (Negative) Urine RBC (0-2) /HPF Urine WBC (0-5) /HPF Ur Squamous Epith Cells (0-2) /HPF Urine Bacteria (None Seen) Hyaline Casts (0-2) /LPF COVID-19 (JOSE RAFAEL) Negative (Negative) COVID-19 Clin Com See Note Influenza Type A (YANN) (Negative) Influenza Type B (YANN) (Negative) Influenza A & B Note Radiology Impression Discussion of test interpretation with radiology: I have reviewed the radiologist's reading. Radiologist Impression: CT abdomen pelvis wo IV con IMPRESSION: 1. Hepatomegaly. 2. Cholelithiasis. 3. Mildly enlarged uterus. 4. A cause for the left flank pain and dysuria has not been found. Fleischner guidelines were followed. Dictated By:Jamari Salasigned By:<Electronically signed by Jamari Salas MD in [place]>05/21/22 1842 Discharge Plan Discharge Clinical Impression: Urethritis, Dysuria, Left flank pain Patient Disposition: Home, Self-Care Additional Instructions: Your blood work was normal. Your urine was positive for blood but there was no evidence for a bacterial infection. The CT scan of your abdomen pelvis did not reveal any clear cause for your symptoms. You did have some incidental findings the not related to your pain and I did put the radiology impression at the end of this section and you can discuss these with your doctor. Your symptoms may be caused by an infection your urethra (the tube that you pee through-urethritis) You did receive Levaquin 750 mg IV. I am going to treat your urethritis with doxycycline 100 mg every 12 hours for 10 days and metronidazole 500 mg every 12 hours for 10 days. Take ibuprofen 200 mg pills, 3 pills every 6 hours as needed for pain. Take Tylenol (acetaminophen) 500 mg pills, 2 pills every 4 to 6 hours as needed for pain. I did test her urine for gonorrhea and chlamydia, this will not come back today, you can check this on the patient portal and your PCP or the urologist can check these results for you as well. I want you to follow-up in 7-10 days with our on-call urologist. Follow-up with your doctor in 2 days. Please return to the emergency department if your symptoms get worse or if you develop any symptoms that are concerning to you. You had several incidental findings on the CT abdomen pelvis with IV contrast the not related to the pain that your having today. IMPRESSION: 1. Hepatomegaly. 2. Cholelithiasis. 3. Mildly enlarged uterus. 4. A cause for the left flank pain and dysuria has not been found. Prescriptions: New metronidazole 500 mg tablet 500 mg PO BID 10 Days Qty: 20 0RF doxycycline hyclate 100 mg tablet 100 mg PO Q12H 10 Days Qty: 20 0RF No Action lidocaine 5 % adhesive patch,medicated 1 patch topical DAILY PRN (Reason: pain) Qty: 15 0RF Rx Instructions: leave on most painful area for up to 12 hrs lamotrigine [Lamictal] 5 mg Tablet, Chewable Dispersible 10 mg Label Comments: Just got new prescription, hasn't gotten it filled yet, has taken Lamictal previously for bipolar oxycodone-acetaminophen [Percocet] 5-325 mg tablet 1 tab PO Q4-6H PRN (Reason: pain) Qty: 25 0RF Rx Instructions: Partial Fill upon patient request. ibuprofen 600 mg tablet 600 mg PO Q6H PRN (Reason: pain) Qty: 30 0RF fluconazole 150 mg tablet 150 mg PO ONCE 1 Days Qty: 1 0RF medroxyprogesterone [Provera] 10 mg tablet 10 mg PO DAILY 30 Days Qty: 30 0RF Referrals: Fritz Olivares MD [Physician] - (Left flank pain, suprapubic pain, hematuria. CT abdomen pelvis IV contrast negative, urinalysis/microscopic positive for blood. Treated for urethritis with doxycycline and metronidazole. Needs follow-up)
[2022-05-21 16:00] VITALS: BP 132/84; PULSE 86; RESP 16; O2SAT 99
[2022-05-21 16:48] LABS: Lactic Acid 0.6 mmol/L (0.5-2.0)
[2022-05-21 16:50] LABS: Lipase 21 U/L (8-78)
[2022-05-21] MEDS: Ketorolac Tromethamine 15 MG/ML VIAL IVPUSH (16:53)
[2022-05-21] MEDS: ondansetron HCL 4 MG/2 ML VIAL IVPUSH (16:54)
[2022-05-21] MEDS: 0.9 % Sodium Chloride 1,000 ML 999 ML IV (16:54)
[2022-05-21 16:57] LABS: IDNOW Serial# 16C4AD1C; IDNOW Serial# BCCEAD1C; Influenza A Negative (Negative); Influenza B2 Negative (Negative)
[2022-05-21 16:58] LABS: COVID-19 Test Negative (Negative)
[2022-05-21] MEDS: levoFLOXacin/D5W 750 MG/150 ML PIGGYBACK 100 MG IV (17:13)
[2022-05-21 18:11] VITALS: BP 113/52; PULSE 82; RESP 17; TEMP 36.6; O2SAT 98
[2022-05-21] MEDS: Morphine Sulfate 4 MG/ML CARTRIDGE IVPUSH (19:10)
--- NOTE | 2022-05-21 19:18 | PC.NURSE ---
This nurse took over at 19:00: Pt's IVF and abx are running, pt a/o x4.
[2022-05-21 19:34] VITALS: BP 123/68; PULSE 54; RESP 16; TEMP 37.1; O2SAT 99
[2022-05-22 09:38] LABS: CT PCR INVALID (Not Detect.); NG PCR INVALID (Not Detect.)
== END 2022-05-21 20:47 | disposition home or self-care (01) ==
PROVIDERS: Emergency Provider Emergency Medicine Emergency Medical Services
DX: N34.2 Other urethritis (principal); R10.32 Left lower quadrant pain; R51.9 Headache, unspecified; R30.0 Dysuria; M79.10 Myalgia, unspecified site; F17.210 Nicotine dependence, cigarettes, uncomplicated; Z20.822 Contact with and (suspected) exposure to COVID-19; Z20.828 Contact with and (suspected) exposure to other viral communicable diseases; Z71.6 Tobacco abuse counseling; Z79.899 Other long term (current) drug therapy
CPT/HCPCS: 0353U; 36415; 74176; 80053; 81001; 83605; 83690; 85025; 87040; 87502; 87635; 96361; 96374; 96375; 99284; J1885; J1956; J2270; J2405

== ENCOUNTER 2022-10-20 13:08 | Emergency (ER) | payer OTHER, SELFPAY ==
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
[2022-10-20 13:14] VITALS: BP 163/83; PULSE 102; RESP 20; TEMP 37; O2SAT 96; BMI 31.1
[2022-10-20] MEDS: Ketorolac Tromethamine 15 MG/ML VIAL IM (14:24)
== END 2022-10-20 14:27 | disposition home or self-care (01) ==
PROVIDERS: Emergency Provider Emergency Medicine Emergency Medical Services
DX: M54.12 Radiculopathy, cervical region (principal); F17.210 Nicotine dependence, cigarettes, uncomplicated; Z71.6 Tobacco abuse counseling; Z79.899 Other long term (current) drug therapy
CPT/HCPCS: 96372; 99283; 99284; J1885

== ENCOUNTER 2024-08-06 20:57 | Emergency (ER) | payer OTHER, SELFPAY ==
--- NOTE | ~2024-08-06 | CT_ITS ---
CLINICAL HISTORY: Left abdomen left hip pain CT abdomen and pelvis without contrast Comparison: 05/21/2022 Findings: Lung bases clear. No acute bony abnormality. Liver and spleen within normal limits. Pancreas and adrenal glands unremarkable. Cholelithiasis without gallbladder distention. No bilateral renal stone or hydronephrosis. No focal renal abnormality or ureteral dilation. No evidence for aortic aneurysm. No free fluid or adenopathy in the pelvis. No diverticulitis. Appendix unremarkable. Uterus normal size. No adnexal abnormality. Impression: No acute processes This document has been electronically signed by: Anthony Dejesus MD on 08/06/2024 23:45:39
[2024-08-06 21:04] VITALS: BP 145/56; PULSE 91; RESP 20; TEMP 36.7; O2SAT 99; BMI 34.3
[2024-08-06 21:21] VITALS: BP 159/87; PULSE 85; RESP 16; TEMP 36.6; O2SAT 100
--- NOTE | 2024-08-06 21:25 | ED_ITS ---
HPI - General Adult General Chief complaint: General Medical Stated complaint: right side pain/hip and leg Time Seen by Provider: 08/06/24 21:25 Source: patient Mode of arrival: ambulatory Limitations: no limitations History of Present Illness ED Provider: DR. Camejo HPI narrative: 48-year-old female walked in for evaluation of left abdominal/left hip pain started 3 days ago, patient declined any falls or injury to the left hip. Described pain is localized to the left hip/left lower abdominal area radiates to the lower back area. No radiation down to the leg, no numbness, no weakness, no urinary incontinence, no stool incontinence. Patient declined history of using IV drug abuse, no fever, no chills. No dysuria, no frequency urination, no hematuria. Related Data Home Medications ?Medication ?Instructions ?Recorded ?Confirmed lamotrigine 5 mg chewable 10 mg 12/22/21 dispersible tablet (Lamictal) Previous Rx's ?Medication ?Instructions ?Recorded lidocaine 5 % topical patch 1 patch topical DAILY PRN pain #15 05/20/21 ea medroxyprogesterone 10 mg tablet 10 mg PO DAILY Abnormal uterine 10/10/21 (Provera) bleeding 30 days #30 tabs fluconazole 150 mg tablet 150 mg PO ONCE 1 day #1 tab 12/19/21 ibuprofen 600 mg tablet 600 mg PO Q6H PRN pain #30 tabs 12/27/21 oxycodone-acetaminophen 5 mg-325 1 tab PO Q4-6H PRN pain #25 tabs 12/27/21 mg tablet (Percocet) doxycycline hyclate 100 mg tablet 100 mg PO Q12H 10 days #20 tabs 05/21/22 metronidazole 500 mg tablet 500 mg PO BID 10 days #20 tabs 05/21/22 ibuprofen 600 mg tablet 600 mg PO Q8H PRN pain #14 tabs 08/07/24 Allergies Allergy/AdvReac Type Severity Reaction Status Date / Time cephalexin [From Keflex] Allergy Swelling Verified 08/06/24 21:08 Review of Systems 2 Review of Systems: All other systems are reviewed and are negative Constitutional: Reports as per HPI and Reports no additional constitutional complaints Eyes: Reports as per HPI and Reports no additional eye complaints Reports system reviewed and no additional complaints, except as documented Cardiovascular: Reports as per HPI and Reports no additional cardiovascular complaints Respiratory: Reports as per HPI and Reports no additional respiratory complaints Gastrointestinal: Reports as per HPI and Reports no additional gastrointestinal complaints Genitourinary: Reports no additional female genitourinary complaints Musculoskeletal: Reports no additional musculoskeletal complaints Skin/Breast: Reports system reviewed and no additional complaints, except as docu Psychiatric: Reports no additional psychiatric complaints Endocrine: Reports no additional endocrine complaints Hematologic/Lymphatic: Reports no additional hematologic/lymphatic complaints Allergic/Immunologic: Reports no additional allergic/immunologic complaints Reports system reviewed and no additional complaints, except as documented and Reports Abnormal speech present [facility] Past Medical History Medical History Family history of uterine cancer Bipolar disorder Candidal vulvovaginitis Mass of anus Surgical History History of excision of lesion (~12/27/21) History of Previous back surgery Family History Family History Maternal Grandmother Lung cancer, Onset Age: 63 Maternal Aunt Lung cancer Paternal Grandmother Ovarian cancer Social History Social History Are you a primary senior care manager to a significant other at home: No Do you presently have visiting nurse or other home services: No Patient Tobacco Use Status: Current everyday Tobacco user Tobacco use type: Cigarette Cigarettes Per Day: 10 Years Smoked: 25 Smoked in Last 30 Days: Yes Use of substances other than those prescribed or required for medical reasons: Yes Substance Use Type: Marijuana Advance Directives: No Advance Directives Information Provided: No Patient : No Physical Exam ED Vital Signs: Vital Signs - 24 hr 08/06/24 21:04 08/06/24 21:21 08/06/24 22:39 Temperature 98.0 F 97.8 F 98.2 F Pulse Rate 91 85 72 Respiratory Rate 20 16 16 Blood Pressure 145/56 H 159/87 H 127/55 L Pulse Oximetry 99 100 99 Oxygen Delivery Method Room Air Room Air Room Air 08/06/24 22:56 Temperature 98.0 F Pulse Rate 67 Respiratory Rate 16 Blood Pressure 119/62 Pulse Oximetry 98 Oxygen Delivery Method Room Air BMI result Body Mass Index 34.3 Vital signs have been reviewed and appear to be correct. Blood pressure elevated. Heart rate normal. Respiratory rate normal. Temperature normal. Oxygen saturation normal. Appearance: Alert. Oriented X3. No acute distress. Head: Normal external exam. Normocephalic. Atraumatic. No Tovar signs noted. No raccoon eyes noted Eyes: PERRLA. EOMI. Conjunctiva and sclera normal. Eyelids normal. ENT: TM's Normal. Pharynx normal. Uvula midline. Moist mucous membranes. No trismus noted. No drooling noted. No muffled voice noted. Neck: Normal inspection. Neck supple. FROM. No adenopathy. Thyroid Normal. No meningeal signs. No neck mass noted. CVS: Normal heart rate and rhythm. Heart sound normal. No murmurs noted. Pulses normal throughout. Respiratory: No respiratory distress. Painless inspiration. Breath sounds normal. No wheezes/rales/rhonchi noted. Chest nontender. No accessory muscle usage noted or decreased air movement noted. Abdomen: Soft, left lower quadrant abdominal tenderness, no rebound tenderness, no guarding. Bowel sounds normal in all 4 quadrants. No distention noted. No organomegaly noted. No visible injury noted. Back: No CVA tenderness. Full range of motion noted. Skin: Skin warm and dry. Normal skin color. Normal skin turgor. No rashes/lesions/lacerations noted. Extremities: Left hip: No deformity, no step-off, a full range of motion, tenderness with movement of the left have or walking. Neuro: Oriented X 3. Cranial nerve exam: II-XII are grossly intact No motor deficit. No sensory deficit. Reflexes normal. Course Reevaluation(s) Reevaluation #1: Left hip pain patient has feels better able to ambulate in the ED. Will discharge on NSAIDs and follow-up with PCP. Time: 00:20 Medications Administered Discontinued Medications Generic Name Dose Route Start Last Admin Trade Name Freq PRN Reason Stop Dose Admin Hydromorphone HCl 1 mg 08/06/24 21:30 08/06/24 21:48 Hydromorphone Hcl 1 Mg/Ml Syringe IM 08/06/24 21:31 1 mg ONCE ONE Administration Protocol Ketorolac Tromethamine 15 mg 08/06/24 21:30 08/06/24 21:48 Ketorolac Tromethamine 15 Mg/Ml Vial IM 08/06/24 21:31 15 mg ONCE ONE Administration Medical Decision Making Differential Diagnosis Differential Diagnoses: The differential diagnosis associated with the presentation includes (Obstructive uropathy, UTI, kidney stone, , left hip arthritis, lumbar radiculopathy.) Admission/Observation Consideration of admission/observation: Escalation of care including admission/observation considered Lab Data MDM Lab Attestation statement: I reviewed the patient's lab results. 08/06/24 21:39 08/06/24 21:39 Labs: Lab Results 08/06/24 08/06/24 Range/Units 21:39 23:37 WBC 9.2 (4.8-10.8) X10*3/uL RBC 3.95 L (4.20-5.50) X10*6/uL Hgb 11.7 L (12.0-16.0) g/dl Hct 34.0 L D (37.0-47.0) % MCV 86.1 (80.0-98.0) fL MCH 29.6 (27.0-33.0) pg MCHC 34.4 (31.0-35.0) g/dl RDW 14.4 (11.0-16.0) % Plt Count 224 (160-400) X10*3/uL MPV 9.3 L (9.4-12.3) fL Immature Gran % (Auto) 0.3 (0.0-0.4) % Neut % (Auto) 61.9 (45-73) % Lymph % (Auto) 26.7 (20-40) % [place] % (Auto) 8.5 (2-11) % Eos % (Auto) 2.1 (0-4) % Baso % (Auto) 0.5 (0-2) % Lymph # (Auto) 2.5 (1.2-4.9) X10*3/uL [place] # (Auto) 0.8 (0.1-1.2) X10*3/uL Eos # (Auto) 0.2 (0.0-0.4) X10*3/uL Baso # (Auto) 0.1 (0.0-0.2) X10*3/uL Abs Immat Gran (auto) 0.03 (0.00-0.03) X10*3/uL Absolute Neuts (auto) 5.7 (2.0-8.3) x10*3/uL Absolute Nucleated RBC 0.000 (0.0-0.012) X10*3/uL Nucleated RBC % (auto) 0.0 (0.0-0.2) /100WBC Sodium 142 (135-145) mmol/L Potassium 3.4 (3.3-5.1) mmol/L Chloride 109 H (96-108) mmol/L Carbon Dioxide 24 (22-29) mmol/L Anion Gap 12 (12-20) BUN 13 (9-16) mg/dL Creatinine 0.69 (0.5-1.4) mg/dL Estim Creat Clear Calc 93.1 Estimated GFR > 60 Random Glucose 128 H (60-115) mg/dL Calcium 8.4 D (8.4-10.2) mg/dL Total Bilirubin 0.3 (0.0-1.0) mg/dL Direct Bilirubin 0.1 (0.0-0.5) mg/dL AST 17 (5-31) U/L ALT 15 (0-31) U/L Alkaline Phosphatase 44 (39-117) U/L Total Protein 6.0 L (6.5-8.0) g/dL Albumin 3.7 (3.5-5.0) g/dL Lipase 24 (8-78) U/L Beta HCG, Quant < 2 mIU/mL Urine Color Dark Yellow Urine Appearance Clear Urine pH 5.5 (5.0-9.0) Ur Specific [place] >= 1.030 H (1.005-1.025) Urine Protein Trace (Neg-Trace) mg/dL Urine Glucose (UA) Negative (Negative) mg/dL Urine Ketones Trace (Negative) mg/dL Urine Blood Negative (Negative) Urine Nitrite Negative (Negative) Ur Leukocyte Esterase Negative (Negative) Independent Interpretation I performed an independent interpretation of an: CT Scan (Abdomen pelvis: No acute intrathoracic pathology.) Radiology Impression Discussion of test interpretation with radiology: I have reviewed the radiologist's reading. Discharge Plan Discharge Clinical Impression: Arthralgia of hip, left Patient Disposition: Home, Self-Care Instructions: Arthralgia (ED) Prescriptions: New ibuprofen 600 mg tablet 600 mg PO Q8H PRN (Reason: pain) Qty: 14 0RF No Action lidocaine 5 % adhesive patch,medicated 1 patch topical DAILY PRN (Reason: pain) Qty: 15 0RF Rx Instructions: leave on most painful area for up to 12 hrs lamotrigine [Lamictal] 5 mg Tablet, Chewable Dispersible 10 mg Patient Comments: Just got new prescription, hasn't gotten it filled yet, has taken Lamictal previously for bipolar oxycodone-acetaminophen [Percocet] 5-325 mg tablet 1 tab PO Q4-6H PRN (Reason: pain) Qty: 25 0RF Rx Instructions: Partial Fill upon patient request. ibuprofen 600 mg tablet 600 mg PO Q6H PRN (Reason: pain) Qty: 30 0RF metronidazole 500 mg tablet 500 mg PO BID 10 Days Qty: 20 0RF doxycycline hyclate 100 mg tablet 100 mg PO Q12H 10 Days Qty: 20 0RF fluconazole 150 mg tablet 150 mg PO ONCE 1 Days Qty: 1 0RF medroxyprogesterone [Provera] 10 mg tablet 10 mg PO DAILY 30 Days Qty: 30 0RF Referrals: Herbie Mcleod MD [Physician] - Print Language: Romanian
[2024-08-06 21:43] LABS: MANUAL DIFF FLAG NO
[2024-08-06 21:44] LABS: Basophils Absolute Auto 0.1 X10*3/uL (0.0-0.2); Basophils Percent Auto 0.5 % (0-2); Eosinophils Absolute Auto 0.2 X10*3/uL (0.0-0.4); Eosinophils Percent Auto 2.1 % (0-4); Hemoglobin 11.7 g/dl (12.0-16.0); Imm Gran Abs Auto 0.03 X10*3/uL (0.00-0.03); Imm Gran Pct Auto 0.3 % (0.0-0.4); Lymphocytes Absolute Auto 2.5 X10*3/uL (1.2-4.9); Lymphocytes Percent Auto 26.7 % (20-40); Mean Corpuscular HGB Conc 34.4 g/dl (31.0-35.0); Mean Corpuscular Hemoglobin 29.6 pg (27.0-33.0); Mean Corpuscular Volume 86.1 fL (80.0-98.0); Mean Platelet Volume 9.3 fL (9.4-12.3); Monocytes Absolute Auto 0.8 X10*3/uL (0.1-1.2); Monocytes Percent Auto 8.5 % (2-11); Neutrophils Absolute Auto 5.7 x10*3/uL (2.0-8.3); Neutrophils Percent Auto 61.9 % (45-73); Platelet Count 224 X10*3/uL (160-400); Red Blood Count 3.95 X10*6/uL (4.20-5.50); Red Cell Distribution Width 14.4 % (11.0-16.0); White Blood Count 9.2 X10*3/uL (4.8-10.8)
[2024-08-06] MEDS: Ketorolac Tromethamine 15 MG/ML VIAL IM (21:48)
[2024-08-06] MEDS: HYDROmorphone HCl 1 MG/ML SYRINGE IM (21:48)
[2024-08-06 22:09] LABS: Alanine Aminotransferase 15 U/L (0-31); Albumin Level 3.7 g/dL (3.5-5.0); Alkaline Phosphatase 44 U/L (39-117); Anion Gap 12 (12-20); Aspartate Amino Transferase 17 U/L (5-31); Bilirubin Direct 0.1 mg/dL (0.0-0.5); Bilirubin Total 0.3 mg/dL (0.0-1.0); Blood Urea Nitrogen 13 mg/dL (9-16); Calcium 8.4 mg/dL (8.4-10.2); Carbon Dioxide 24 mmol/L (22-29); Chloride 109 mmol/L (96-108); Creatinine Clr Calc Pharmacy 93.1; Estimated Glomerular Filt Rate > 60; Glucose Random 128 mg/dL (60-115); HCG Quantitative < 2 mIU/mL; Lipase 24 U/L (8-78); Potassium 3.4 mmol/L (3.3-5.1); Sodium 142 mmol/L (135-145)
[2024-08-06 22:39] VITALS: BP 127/55; PULSE 72; RESP 16; TEMP 36.8; O2SAT 99
[2024-08-06 22:56] VITALS: BP 119/62; PULSE 67; RESP 16; TEMP 36.7; O2SAT 98
[2024-08-06 23:45] LABS: Appearance Urine Clear; Color Urine Dark Yellow; Glucose Urine UA Negative (Negative); Leukocyte Esterase Urine Negative (Negative); Nitrite Urine Negative (Negative); PH 5.5 (5.0-9.0); Specific Gravity - Urine >= 1.030 (1.005-1.025); Urine Blood Negative (Negative); Urine Ketones Trace mg/dL (Negative); Urine Protein Trace mg/dL (Neg-Trace)
[2024-08-07 00:30] VITALS: BP 119/62; PULSE 67; RESP 16; TEMP 36.7; O2SAT 98
== END 2024-08-07 00:31 | disposition home or self-care (01) ==
PROVIDERS: Emergency Provider Emergency Medicine
DX: M25.552 Pain in left hip (principal); R10.32 Left lower quadrant pain; R10.2 Pelvic and perineal pain; Z79.899 Other long term (current) drug therapy
CPT/HCPCS: 36415; 74176; 80048; 80076; 81003; 83690; 84702; 85025; 96372; 99284; J1171; J1885

== ENCOUNTER → 2024-08-06 21:32 | Outpatient (BNV) | payer SELFPAY | PROVIDERS: Emergency Provider Emergency Medicine; Visit Provider Radiology Diagnostic Radiology | DX: M25.552 Pain in left hip (principal) | CPT/HCPCS: 74176 ==